=== PATIENT | female | born 1995 | race Hispanic/Latino ===

== ENCOUNTER 2018-02-11 16:50 | Emergency (ER) | payer OTHER ==
[2018-02-11 18:04] LABS: Absolute Lymphocytes (CBC) 2.1 K/uL (0.7-4.9); Absolute Monocytes 0.5 K/uL (0.1-1.3); Absolute Neutrophil 5.5 K/uL (1.8-8.0); Basophils % 0.4 % (0-1.3); Eosinophils % 1.5 % (0-4.4); Hematocrit 38.2 % (36.0-45.0); Lymphocytes % 25.5 % (15.3-44.8); MCH 31.6 pg (27.0-35.0); MCV 92.4 fL (80-100); MPV 9.3 fL (7.6-11.3); RBC Red Blood Cell Count 4.13 M/uL (3.86-4.86)
[2018-02-11 18:11] LABS: Bicarbonate 25 mEq/L (21-31); Glucose Level 96 mg/dL (65-120); Potassium 3.4 mEq/L (3.6-5.0); Sodium Level 137 mEq/L (135-145)
[2018-02-11 18:12] LABS: BUN Blood Urea Nitrogen 6 mg/dL (6-20); Glomerular Filtration Rate > 90 mL/min (=/>90)
[2018-02-11 18:48] LABS: Urine Blood NEGATIVE (NEG); Urine Glucose NEGATIVE (NEG); Urine Protein TRACE (NEG)
[2018-02-11 19:22] LABS: Urine Bacteria <20 /HPF (<20); Urine Culture Reflex Order REFLEXED; Urine RBC <5 /HPF (NONE SEEN)
--- NOTE | 2018-02-11 19:51 | ER ---
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 Sees Dr. Foster, reports she is 12 weeks , est due date 08/28, . Transition of care: patient was not received from another setting of care. Onset of symptoms was February 11, 2018. Care prior to arrival: None. 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 - Social history:: Smoking status: Patient/guardian denies using tobacco. Screenin:35 Abuse screen: Denies threats or abuse. Denies injuries from another. Nutritional kr2 screening: No deficits noted. Tuberculosis screening: No symptoms or risk factors identified. Fall Risk None identified. Assessment: 17:35 Obstetrical Assessment: General assessment: awake and alert, skin warm and dry, kr2 respirations even and unlabored. General: Appears in no apparent distress. comfortable, obese, well groomed, Behavior is cooperative, appropriate for age, anxious. Pain: Denies pain. Neuro: Level of Consciousness is awake, alert, obeys commands, Oriented to person, place, time, situation, Appropriate for age. Cardiovascular: Capillary refill < 3 seconds in bilateral fingers Patient's skin is warm and dry. Respiratory: Airway is patent Respiratory effort is even, unlabored, Respiratory pattern is regular, symmetrical. GI: Abdomen is non-distended, obese, Bowel sounds present X 4 quads. : Reports vaginal bleeding that is light flow, spotty. 17:38 Reassessment: unsuccessful obtaining FHTs. LEIGH Gage notified. Pt reports that ss she has never had a Doppler used in the doctor's office to obtain FHTs, only transvaginal ultrasound. 20:00 Reassessment: Patient appears in no apparent distress at this time. Patient and/or kr2 family updated on plan of care and expected duration. Pain level reassessed. Patient is alert, oriented x 3, equal unlabored respirations, skin warm/dry/pink. States she has had no further bleeding Patient denies pain at this time. Vital Signs: 17:05 BP 168 / 98; Pulse 107; Resp 20; Temp 98; Pulse Ox 100% on R/A; Height 5 ft. 6 in. hb (167.64 cm); Pain 0/10; 18:56 BP 140 / 78; Pulse 90; Resp 18; Pulse Ox 100% on R/A; kr2 20:04 BP 145 / 80; Pulse 90; Resp 16; Pulse Ox 99% on R/A; kr2 Vitals: 18:58 Heart Tones heart tones could not be heard with external Doppler. Provider kr2 was notified, vaginal ultrasound ordered. ED Course: 16:51 Patient arrived in ED. as 16:51 Jacinta Foster MD is Private Physician. as 17:04 Triage completed. hb 17:05 Arm band placed on left wrist. hb 17:07 [facility]ly [facility] jr8 17:07 Jose Elias Vasquez MD is Attending Physician. jr8 17:25 Shannan Jara, NEHEMIAS is Primary Nurse. kr2 17:40 Patient has correct armband on for positive identification. Bed in low position. Call kr2 light in reach. Side rails up X2. Pulse ox on. NIBP on. Door closed. Warm blanket given. Head of bed elevated. 17:42 Initial lab(s) drawn, by me, sent to lab. Inserted saline lock: 22 gauge in right dh3 forearm, using aseptic technique. Blood collected. 17:55 Radiology exam delayed due to test not completed at this time. sg3 19:33 Ultrasound completed. Patient tolerated well. 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 sg3 19:50 Jacinta Foster MD is Referral Physician. jr8 20:05 No provider procedures requiring assistance completed. IV discontinued, intact, kr2 bleeding controlled, No redness/swelling at site. Pressure dressing applied. Administered Medications: No medications were administered Outcome: 19:50 Discharge ordered by . jr8 20:06 Discharged to home ambulatory, with family. kr2 20:06 Condition: good 20:06 Discharge instructions given to patient, family, Instructed on discharge instructions, follow up and referral plans. Demonstrated understanding of instructions, follow-up care. 20:08 Patient left the ED. kr2 Signatures: Carolina Dow Shelby RN RN ss Alonso Ely PA PA jr8 Renetta Lloyd RN RN Dea Santiago 3 Shannan Jara RN RN kr2 Sue España 3 Corrections: (The following items were deleted from the chart) 20:07 17:35 : Reports vaginal bleeding that is kr2 kr2
--- NOTE | 2018-02-11 19:51 | EDPHYS ---
Physician Documentation [facility] Name: Lyudmila Christian Age: 22 yrs Sex: Female : 1995 Arrival Date: 02/11/2018 Time: 16:51 Bed 23 Private MD: Jacinta Foster ED Physician Jose Elias Vasquez HPI: 02/11 17:47 This 22 yrs old Female presents to ER via Ambulatory with complaints of jr8 Vaginal Bleeding, + Preg <12wks. 17:47 The patient presents to the emergency department with vaginal bleeding, that is light, jr8 described as spotting. The estimated gestational age is 12 weeks. course: care: private OB physician, Dr. Foster, Leakage of Fluid: none appreciated, Ultrasound: the patient had an ultrasound, which was normal, Risk/complications: no obvious risks or complications are appreciated. Previous pregnancies: the patient has never been . Associated signs and symptoms: The patient has no apparent associated signs or symptoms. The patient has not experienced similar symptoms in the past. The patient has not recently seen a physician. stated that she had gone to restroom and after whipping saw small amount of blood. Denies abdominal cramping or back pain . 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 - Social history:: Smoking status: Patient/guardian denies using tobacco. ROS: 17:47 Eyes: Negative for injury, pain, redness, and discharge, ENT: Negative for injury, jr8 pain, and discharge, Neck: Negative for injury, pain, and swelling, Cardiovascular: Negative for chest pain, palpitations, and edema, Respiratory: Negative for shortness of breath, cough, wheezing, and pleuritic chest pain, Abdomen/GI: Negative for abdominal pain, nausea, vomiting, diarrhea, and constipation, Back: Negative for injury and pain, MS/Extremity: Negative for injury and deformity, Skin: Negative for injury, rash, and discoloration, Neuro: Negative for headache, weakness, numbness, tingling, and seizure. 17:47 : Positive for vaginal bleeding, Negative for vaginal discharge, vaginal itching. Exam: 17:47 Eyes: Pupils equal round and reactive to light, extra-ocular motions intact. Lids and jr8 lashes normal. Conjunctiva and sclera are non-icteric and not injected. Cornea within normal limits. Periorbital areas with no swelling, redness, or edema. ENT: Nares patent. No nasal discharge, no septal abnormalities noted. Tympanic membranes are normal and external auditory canals are clear. Oropharynx with no redness, swelling, or masses, exudates, or evidence of obstruction, uvula midline. Mucous membranes moist. Neck: Trachea midline, no thyromegaly or masses palpated, and no cervical lymphadenopathy. Supple, full range of motion without nuchal rigidity, or vertebral point tenderness. No Meningismus. Cardiovascular: Regular rate and rhythm with a normal S1 and S2. No gallops, murmurs, or rubs. Normal PMI, no JVD. No pulse deficits. Respiratory: Lungs have equal breath sounds bilaterally, clear to auscultation and percussion. No rales, rhonchi or wheezes noted. No increased work of breathing, no retractions or nasal flaring. Abdomen/GI: Soft, non-tender, with normal bowel sounds. No distension or tympany. No guarding or rebound. No evidence of tenderness throughout. Back: No spinal tenderness. No costovertebral tenderness. Full range of motion. Skin: Warm, dry with normal turgor. Normal color with no rashes, no lesions, and no evidence of cellulitis. MS/ Extremity: Pulses equal, no cyanosis. Neurovascular intact. Full, normal range of motion. Neuro: Awake and alert, GCS 15, oriented to person, place, time, and situation. Cranial nerves II-XII grossly intact. Motor strength 5/5 in all extremities. Sensory grossly intact. Cerebellar exam normal. Normal gait. Vital Signs: 17:05 BP 168 / 98; Pulse 107; Resp 20; Temp 98; Pulse Ox 100% on R/A; Height 5 ft. 6 in. hb (167.64 cm); Pain 0/10; 18:56 BP 140 / 78; Pulse 90; Resp 18; Pulse Ox 100% on R/A; kr2 20:04 BP 145 / 80; Pulse 90; Resp 16; Pulse Ox 99% on R/A; kr2 MDM: 17:07 Patient medically screened. [facility] 19:48 Data reviewed: vital signs, nurses notes, lab test result(s), EKG, radiologic studies, [facility] ultrasound, and as a result, I will discharge patient. Data interpreted: Pulse oximetry: on room air is 98 %. Interpretation: normal. Counseling: I had a detailed discussion with the patient and/or guardian regarding: the historical points, exam findings, and any diagnostic results supporting the discharge/admit diagnosis, lab results, radiology results, the need for outpatient follow up, an OB/Gyne specialist, to return to the emergency department if symptoms worsen or persist or if there are any questions or concerns that arise at home. ED course: Instructed to f/u with OB on Tuesday. Until then pelvic rest. Low activity level. Hydrate. If bleeding gets worse to come back . 02/11 17:21 Order name: Quantitative Hcg [facility] 02/11 17:21 Order name: Abo/rh Typing [facility] 02/11 17:21 Order name: Basic Metabolic Panel [facility] 02/11 17:21 Order name: CBC with Diff [facility] 02/11 18:06 Order name: CBC with Automated Diff; Complete Time: 18:22 EDFL 02/11 18:11 Order name: Basic Metabolic Panel; Complete Time: 19:00 EDFL 02/11 18:15 Order name: ABO/RH typing; Complete Time: 18:22 EDFL 02/11 18:30 Order name: Urine Microscopic Only [facility] 02/11 18:36 Order name: Urine Dipstick--Ancillary (enter results) 02/11 18:36 Order name: Urine --Ancillary (enter results) 02/11 18:45 Order name: HCG, Quantitative; Complete Time: 19:00 EDFL 02/11 18:48 Order name: Urine --Ancillary; Complete Time: 19:00 EDFL 02/11 18:48 Order name: Urine Dipstick-Ancillary; Complete Time: 19:00 EDFL 02/11 19:22 Order name: Urine Microscopic Only; Complete Time: 19:28 EDFL 02/11 17:21 Order name: Urine Test (obtain specimen); Complete Time: 18:30 [facility] 02/11 17:21 Order name: IV Saline Lock; Complete Time: 17:50 [facility] 02/11 17:21 Order name: Labs collected and sent; Complete Time: 17:50 [facility] 02/11 17:21 Order name: NPO; Complete Time: 17:34 [facility] 02/11 17:21 Order name: Urine Dipstick-Ancillary (obtain specimen); Complete Time: 18:31 [facility] 02/11 17:22 Order name: FHT's; Complete Time: 17:55 [facility] 02/11 17:39 Order name: US Transvaginal Ob jr8 Administered Medications: No medications were administered Disposition: 02/11/18 19:50 Discharged to Home. Impression: Threatened . - Condition is Stable. - Discharge Instructions: Threatened Miscarriage, Pelvic Rest. - Medication Reconciliation Form, Thank You Letter, Antibiotic Education, Prescription Opioid Use, Work release form, Family Work Release form. - Follow up: Jacinta Foster MD; When: 1 - 2 days; Reason: Recheck today's complaints, Continuance of care, Re-evaluation by your physician. - Problem is new. - Symptoms have improved. Addendum: 02/13/2018 08:00 Co-signature as Attending Physician, Jose Elias Vasquez MD I agree with the assessment and c gloria plan of care. Signatures: Dispatcher [employer] [facility] Jose Elias Vasquez MD MD cha Roszak, Josh, PA PA jr8 Renetta Lloyd, RN NEHEMIAS Shannan Jara RN RN kr2
--- NOTE | 2018-02-11 20:15 | RAD REPORT ---
EXAM DESCRIPTION: US - Transvaginal OB - 02/11/2018 7:58 pm CLINICAL HISTORY: with abdominal pain and vaginal bleeding COMPARISON: None. FINDINGS: The uterus is retroverted and measures 12 x 8 x 10 centimeters. A gestational sac is pres ent within the endometrium. Within this is a pole with a crown-rump length 4.1 centimeters. Ca rdiac activity 166 beats per minute A a tiny subchorionic bleed is seen. Small amount of fluid is present the cervical canal. . No signif icant free fluid is seen. IMPRESSION: Single live intrauterine with an estimated gestational age 11 weeks 0 days ED D 09/02/2018
== END 2018-02-11 20:08 | disposition home or self-care (01) ==
LOC: ER 16:50
DX: O20.0 Threatened abortion (principal); Z3A.11 11 weeks gestation of pregnancy
CPT/HCPCS: 36415; 76817; 80048; 81003; 81015; 81025; 84702; 85025; 86900; 86901; 87086; 87088; 99284

== ENCOUNTER 2018-06-05 21:40 | Emergency (ER) | payer OTHER ==
[2018-06-05] MEDS ORDERED: ACETAMINOPHEN 500 MG TAB ONE (22:18)
--- NOTE | 2018-06-05 23:02 | EDPHYS ---
Physician Documentation [facility] Name: Lyudmila Christian Age: 23 yrs Sex: Female : 1995 Arrival Date: 06/05/2018 Time: 21:41 Bed 15 Private MD: ED Physician Belkys Josue HPI: 06/05 22:58 This 23 yrs old Female presents to ER via Wheelchair with complaints of Leg ma2 Pain - 28 Wks Preg. 22:58 The patient presents with pain. The complaints affect the left gluteal fold and left ma2 upper thigh. Context: the patient is able to ambulate. Onset: The symptoms/episode began/occurred gradually, 4 week(s) ago. Modifying factors: The symptoms are alleviated by nothing. the symptoms are aggravated by movement. Associated signs and symptoms: Pertinent negatives calf tenderness, fever, nausea, numbness, rash, swelling, tingling, vomiting, warmth, weakness. Severity of symptoms: At their worst the symptoms were moderate, in the emergency department the symptoms have improved. The patient has experienced similar episodes in the past. 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 - Social history:: Smoking status: Patient/guardian denies using tobacco, Patient/guardian denies using alcohol, street drugs, The patient lives with family. - Ebola Screening: : No symptoms or risks identified at this time. - Family history:: not pertinent. ROS: 22:58 Back: Positive for pain with movement, Negative for injury or acute deformity, pain ma2 with movement, radiated pain, acute changes. 22:58 All other systems are negative. Exam: 22:58 Constitutional: This is a well developed, well nourished patient who is awake, alert, ma2 and in no acute distress. Head/Face: Normocephalic, atraumatic. Chest/axilla: Normal chest wall appearance and motion. Nontender with no deformity. No lesions are appreciated. Cardiovascular: Regular rate and rhythm with a normal S1 and S2. No gallops, murmurs, or rubs. Normal PMI, no JVD. No pulse deficits. Respiratory: Lungs have equal breath sounds bilaterally, clear to auscultation and percussion. No rales, rhonchi or wheezes noted. No increased work of breathing, no retractions or nasal flaring. Abdomen/GI: Soft, non-tender, with normal bowel sounds. No distension or tympany. No guarding or rebound. No evidence of tenderness throughout. Back: No spinal tenderness. No costovertebral tenderness. Full range of motion. MS/ Extremity: Pulses equal, no cyanosis. Neurovascular intact. Full, normal range of motion. Neuro: Awake and alert, GCS 15, oriented to person, place, time, and situation. Cranial nerves II-XII grossly intact. Motor strength 5/5 in all extremities. Sensory grossly intact. Cerebellar exam normal. Normal gait. Psych: Awake, alert, with orientation to person, place and time. Behavior, mood, and affect are within normal limits. 22:58 Neuro: Motor: is normal. 22:58 Neuro: has positive leg rais test . Vital Signs: 21:52 BP 143 / 75; Pulse 119; Resp 20; Temp 98.6; Pulse Ox 98% on R/A; Weight 172.37 kg (R); ak1 Height 5 ft. 6 in. (167.64 cm) (R); Pain 5/10; 22:37 BP 127 / 82; Pulse 86; Resp 18; Pulse Ox 100% on R/A; aa1 23:20 BP 104 / 55; Pulse 82; Resp 18; Pulse Ox 99% on R/A; Pain 3/10; aa1 21:52 Body Mass Index 61.33 (172.37 kg, 167.64 cm) ak1 MDM: 21:45 Patient medically screened. ma2 22:58 Differential diagnosis: muscle sprain, disc prolapse, vs sciatica, unlikely fracture. ma2 Administered Medications: 22:17 Drug: Tylenol 500 mg Route: PO; aa1 23:20 Follow up: Response: No adverse reaction; Pain is decreased aa1 Disposition: 06/05/18 23:02 Discharged to Home. Impression: Low back pain. - Condition is Stable. - Discharge Instructions: Back Pain, Adult. - Prescriptions for Tylenol 325 mg Oral tablet - take 1 tablet by ORAL route every 4-6 hours as needed; 30 tablet. Cyclobenzaprine 5 mg Oral Tablet - take 1 tablet by ORAL route 3 times per day As needed; 15 tablet. - Medication Reconciliation Form, Thank You Letter, Antibiotic Education, Prescription Opioid Use form. - Follow up: Private Physician; When: Tomorrow; Reason: Continuance of care. - Problem is an acute exacerbation. - Symptoms have improved. Signatures: Pari Ortiz RN RN aa1 Chana Weller RN RN ak1 Belkys Josue MD MD ma2 Corrections: (The following items were deleted from the chart) 23:24 23:02 06/05/2018 23:02 Discharged to Home. Impression: Low back pain. Condition is aa1 Stable. Forms are Medication Reconciliation Form, Thank You Letter, Antibiotic Education, Prescription Opioid Use. Follow up: Private Physician; When: Tomorrow; Reason: Continuance of care. Problem is an acute exacerbation. Symptoms have improved. ma2
--- NOTE | 2018-06-05 23:02 | ER ---
Nurse's Notes [facility] Name: Lyudmila Christian Age: 23 yrs Sex: Female : 1995 Arrival Date: 06/05/2018 Time: 21:41 Bed 15 Private MD: Diagnosis: Low back pain Presentation: 06/05 21:48 Presenting complaint: Patient states: left leg pain due to "baby laying on my spine" pt ak1 stated the pain has been intermittent through out the but became more "intense tonight". Transition of care: patient was not received from another setting of care. Onset of symptoms is unknown. Risk Assessment: Do you want to hurt yourself or someone else? Patient reports no desire to harm self or others. Care prior to arrival: None. pt was sent to [facility] by registration, [facility] did not check or assess pt but sent her back to ER for evaluation. 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 21:48 Method Of Arrival: Wheelchair ak1 21:48 Acuity: KIP 3 ak1 23:30 Initial Sepsis Screen: Does the patient meet any 2 criteria? No. Patient's initial aa1 sepsis screen is negative. Does the patient have a suspected source of infection? No. Patient's initial sepsis screen is negative. Triage Assessment: 21:52 General: Appears uncomfortable, obese, Behavior is crying. 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 - Social history:: Smoking status: Patient/guardian denies using tobacco, Patient/guardian denies using alcohol, street drugs, The patient lives with family. - Ebola Screening: : No symptoms or risks identified at this time. - Family history:: not pertinent. Screenin:00 Abuse screen: Denies threats or abuse. Denies injuries from another. Nutritional aa1 screening: No deficits noted. Tuberculosis screening: No symptoms or risk factors identified. Fall Risk None identified. Assessment: 22:00 General: Appears in no apparent distress. comfortable, obese, Behavior is calm, aa1 cooperative, appropriate for age. Pain: Complains of pain in left leg and left upper thigh Aggravated by weight bearing. Neuro: Level of Consciousness is awake, alert, obeys commands, Oriented to person, place, time, situation, Moves all extremities. Full function Gait is steady. Respiratory: Airway is patent Respiratory effort is even, unlabored, Respiratory pattern is regular, symmetrical. GI: No signs and/or symptoms were reported involving the gastrointestinal system. : No signs and/or symptoms were reported regarding the genitourinary system. EENT: No signs and/or symptoms were reported regarding the EENT system. Derm: Skin is intact, is healthy with good turgor, Skin is pink, warm \\T\\ dry. Musculoskeletal: Circulation, motion, and sensation intact. Capillary refill < 3 seconds, Range of motion: intact in all extremities. 22:38 Reassessment: Patient appears in no apparent distress at this time. Patient and/or aa1 family updated on plan of care and expected duration. Pain level reassessed. Patient is alert, oriented x 3, equal unlabored respirations, skin warm/dry/pink. Awaiting provider reassessment. 23:23 Reassessment: Patient appears in no apparent distress at this time. Patient is alert, aa1 oriented x 3, equal unlabored respirations, skin warm/dry/pink. Discussed d/c \\T\\ f/u instructions with pt \\T\\ spouse; denies questions or concerns at this time Patient states symptoms have improved. Vital Signs: 21:52 BP 143 / 75; Pulse 119; Resp 20; Temp 98.6; Pulse Ox 98% on R/A; Weight 172.37 kg (R); ak1 Height 5 ft. 6 in. (167.64 cm) (R); Pain 5/10; 22:37 BP 127 / 82; Pulse 86; Resp 18; Pulse Ox 100% on R/A; aa1 23:20 BP 104 / 55; Pulse 82; Resp 18; Pulse Ox 99% on R/A; Pain 3/10; aa1 21:52 Body Mass Index 61.33 (172.37 kg, 167.64 cm) ak1 ED Course: 21:41 Patient arrived in ED. ds1 21:45 Belkys Josue MD is Attending Physician. ma2 21:50 Triage completed. ak1 21:52 Arm band placed on Patient placed in an exam room, on a stretcher, on pulse oximetry, ak1 Patient notified of wait time. 22:00 Patient has correct armband on for positive identification. Bed in low position. Call aa1 light in reach. Pulse ox on. NIBP on. 22:12 Pari Ortiz, RN is Primary Nurse. aa1 23:24 No provider procedures requiring assistance completed. Patient did not have IV access aa1 during this emergency room visit. Administered Medications: 22:17 Drug: Tylenol 500 mg Route: PO; aa1 23:20 Follow up: Response: No adverse reaction; Pain is decreased aa1 Outcome: 23:02 Discharge ordered by . ma2 23:24 Discharged to home ambulatory, with significant other. aa1 23:24 Condition: good 23:24 Discharge instructions given to patient, significant other, Instructed on discharge instructions, follow up and referral plans. medication usage, Demonstrated understanding of instructions, follow-up care, medications, Prescriptions given X 2. 23:24 Patient left the ED. aa1 Signatures: Pari Ortiz, RN RN go1 Rosie Chaudhry ds1 Chana Weller RN RN ak1 Belkys Josue MD MD ma2
== END 2018-06-05 23:24 | disposition home or self-care (01) ==
LOC: ER 21:40
DX: M54.5 Low back pain (principal)
CPT/HCPCS: 99283

== ENCOUNTER 2019-03-11 01:24 | Emergency (ER) | payer OTHER ==
--- OUTSIDE RECORDS SUMMARY | 2019-03-11 01:26 | XMS REPORT ---
:1995 [facility] Address [address] [place] [address] Dr. Castro [address] [place] [id number] Care Team Providers Name Role Phone Unavailable Unavailable Unavailable Problems This patient has no known problems. Allergies, Adverse Reactions, Alerts This patient has no known allergies or adverse reactions. Medications This patient has no known medications.
--- NOTE | 2019-03-11 01:50 | EDPHYS ---
Physician Documentation [facility] Name: Lyudmila Christian Age: 24 yrs Sex: Female : 1995 Arrival Date: 03/11/2019 Time: 01:25 Bed 14 Private MD: ED Physician Fernando Mascorro HPI: 03/11 01:48 This 24 yrs old Female presents to ER via Ambulatory with complaints of Right pm1 Great Toe Pain. 01:48 Onset: The symptoms/episode began/occurred 5 day(s) ago. Associated signs and symptoms: pm1 Pertinent positives: discharge, Pertinent negatives: fever. Modifying factors: The patient symptoms are alleviated by expressing discharge, the patient symptoms are aggravated by nothing. The patient has not experienced similar symptoms in the past. The patient has not recently seen a physician. Patient was walking up stairs 5 days ago and her right great toe nail got caught on the stairs and lifted of the base a little. She noticed the onset of pain and some discharge 3 days ago. There is currently no discharge at the moment or swelling to right great toe. 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 - Social history:: Smoking status: Patient/guardian denies using tobacco, Patient/guardian denies using alcohol, street drugs. - Ebola Screening: : No symptoms or risks identified at this time. ROS: 01:46 Constitutional: Negative for fever, chills, and weight loss, Eyes: Negative for injury, pm1 pain, redness, and discharge, ENT: Negative for injury, pain, and discharge, Neck: Negative for injury, pain, and swelling, Cardiovascular: Negative for chest pain, palpitations, and edema, Respiratory: Negative for shortness of breath, cough, wheezing, and pleuritic chest pain, Abdomen/GI: Negative for abdominal pain, nausea, vomiting, diarrhea, and constipation, Back: Negative for injury and pain, : Negative for injury, bleeding, discharge, and swelling, MS/Extremity: Negative for injury and deformity. 01:46 Neuro: Negative for headache, weakness, numbness, tingling, and seizure. 01:46 Skin: Positive for swelling, drainage of pus from right great toe nail area, Negative for cellulitis, discoloration. Exam: :46 Constitutional: This is a well developed, well nourished patient who is awake, alert, pm1 and in no acute distress. Head/Face: Normocephalic, atraumatic. Eyes: Pupils equal round and reactive to light, extra-ocular motions intact. Lids and lashes normal. Conjunctiva and sclera are non-icteric and not injected. Cornea within normal limits. Periorbital areas with no swelling, redness, or edema. ENT: Nares patent. No nasal discharge, no septal abnormalities noted. Tympanic membranes are normal and external auditory canals are clear. Oropharynx with no redness, swelling, or masses, exudates, or evidence of obstruction, uvula midline. Mucous membranes moist. Neck: Trachea midline, no thyromegaly or masses palpated, and no cervical lymphadenopathy. Supple, full range of motion without nuchal rigidity, or vertebral point tenderness. No Meningismus. Chest/axilla: Normal chest wall appearance and motion. Nontender with no deformity. No lesions are appreciated. Cardiovascular: Regular rate and rhythm with a normal S1 and S2. No gallops, murmurs, or rubs. Normal PMI, no JVD. No pulse deficits. Respiratory: Lungs have equal breath sounds bilaterally, clear to auscultation and percussion. No rales, rhonchi or wheezes noted. No increased work of breathing, no retractions or nasal flaring. Abdomen/GI: Soft, non-tender, with normal bowel sounds. No distension or tympany. No guarding or rebound. No evidence of tenderness throughout. Back: No spinal tenderness. No costovertebral tenderness. Full range of motion. Skin: Warm, dry with normal turgor. Normal color with no rashes, no lesions, and no evidence of cellulitis. MS/ Extremity: Pulses equal, no cyanosis. Neurovascular intact. Full, normal range of motion. :46 Neuro: Orientation: is normal, Motor: is normal, moves all fours, Gait: is steady, at a normal pace, without difficulty. Vital Signs: 01:41 BP 143 / 81; Pulse 77; Resp 16 S; Temp 98.1(O); Pulse Ox 98% on R/A; Weight 172.37 kg bb (R); Height 5 ft. 6 in. (167.64 cm) (R); Pain 8/10; 01:41 Body Mass Index 61.33 (172.37 kg, 167.64 cm) bb MDM: 01:39 Patient medically screened. pm1 01:48 Data reviewed: vital signs. Data interpreted: Pulse oximetry: on room air is 98 %. pm1 Interpretation: normal. Counseling: I had a detailed discussion with the patient and/or guardian regarding: the historical points, exam findings, and any diagnostic results supporting the discharge/admit diagnosis, the need for outpatient follow up, to return to the emergency department if symptoms worsen or persist or if there are any questions or concerns that arise at home. 01:48 ED course: Based on patient description of the infection and drainage it sounds like an pm1 improving paronychia. There is no area to perform and I\T\D therefore I will give the patient antibiotics. Administered Medications: No medications were administered Disposition: 03/11/19 01:49 Discharged to Home. Impression: Local infection of the skin and subcutaneous tissue, unspecified. - Condition is Stable. - Discharge Instructions: Paronychia. - Prescriptions for Doxycycline Hyclate 100 mg Oral Tablet - take 1 tablet by ORAL route every 12 hours; 20 tablet. Tramadol 50 mg Oral Tablet - take 1 tablet by ORAL route every 8 hours as needed; 12 tablet. - Medication Reconciliation Form, Thank You Letter, Antibiotic Education, Prescription Opioid Use form. - Follow up: Emergency Department; When: As needed; Reason: Worsening of condition. Follow up: Private Physician; When: 2 - 3 days; Reason: Recheck today's complaints, Continuance of care, Re-evaluation by your physician. - Problem is new. - Symptoms have improved. Addendum: 03/13/2019 01:25 Co-signature as Attending Physician, Fernando Mascorro MD. g s Signatures: Julianna Gonzalez, RN RN bb Saul Garay, OS[place] SANIPRACTIC PHYSICIAN pm1 Cruz Obrien RN RN jb4 Fernando Mascorro MD MD Corrections: (The following items were deleted from the chart) 03/11 02:24 01:49 03/11/2019 01:49 Discharged to Home. Impression: Local infection of the skin and jb4 subcutaneous tissue, unspecified. Condition is Stable. Forms are Medication Reconciliation Form, Thank You Letter, Antibiotic Education, Prescription Opioid Use. Follow up: Emergency Department; When: As needed; Reason: Worsening of condition. Follow up: Private Physician; When: 2 - 3 days; Reason: Recheck today's complaints, Continuance of care, Re-evaluation by your physician. Problem is new. Symptoms have improved. pm1
--- NOTE | 2019-03-11 01:50 | ER ---
Nurse's Notes [facility] Name: Lyudmila Christian Age: 24 yrs Sex: Female : 1995 Arrival Date: 03/11/2019 Time: 01:25 Bed 14 Private MD: Diagnosis: Local infection of the skin and subcutaneous tissue, unspecified Presentation: 03/11 01:39 Presenting complaint: Patient states: about a week ago she hit her right big toe and bb lifted the nail up a little then about 3 days ago pus started coming out and now it is painful. Transition of care: patient was not received from another setting of care. Onset of symptoms was March 11, 2019. Risk Assessment: Do you want to hurt yourself or someone else? Patient reports no desire to harm self or others. Initial Sepsis Screen: Does the patient meet any 2 criteria? No. Patient's initial sepsis screen is negative. Does the patient have a suspected source of infection? No. Patient's initial sepsis screen is negative. Care prior to arrival: None. 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 - Social history:: Smoking status: Patient/guardian denies using tobacco, Patient/guardian denies using alcohol, street drugs. - Ebola Screening: : No symptoms or risks identified at this time. Screenin:20 Abuse screen: Denies threats or abuse. Nutritional screening: No deficits noted. jb4 Tuberculosis screening: No symptoms or risk factors identified. Fall Risk None identified. Assessment: 02:20 General: Appears in no apparent distress. comfortable, Behavior is calm, cooperative, jb4 appropriate for age. Pain: Complains of pain in Right first toenail Pain does not radiate. Pain currently is 5 out of 10 on a pain scale. Quality of pain is described as stabbing, throbbing, Is intermittent. Neuro: Level of Consciousness is awake, alert, obeys commands, Oriented to person, place, time, situation. Cardiovascular: Patient's skin is warm and dry. Respiratory: Airway is patent Respiratory effort is even, unlabored, Respiratory pattern is regular, symmetrical. GI: No signs and/or symptoms were reported involving the gastrointestinal system. : No signs and/or symptoms were reported regarding the genitourinary system. EENT: No signs and/or symptoms were reported regarding the EENT system. Derm: Skin is intact, Skin is pink, warm \T\ dry. Musculoskeletal: Circulation, motion, and sensation intact. Vital Signs: 01:41 BP 143 / 81; Pulse 77; Resp 16 S; Temp 98.1(O); Pulse Ox 98% on R/A; Weight 172.37 kg bb (R); Height 5 ft. 6 in. (167.64 cm) (R); Pain 8/10; 01:41 Body Mass Index 61.33 (172.37 kg, 167.64 cm) bb ED Course: 01:25 Patient arrived in ED. ds1 01:33 Saul Garay NP is PHCP. pm1 01:33 Fernando Mascorro MD is Attending Physician. pm1 01:40 Triage completed. bb 01:41 Arm band placed on Patient placed in an exam room, on a stretcher. Family accompanied bb patient. 02:20 Cruz Obrien, NEHEMIAS is Primary Nurse. jb4 02:20 Patient has correct armband on for positive identification. Bed in low position. Call jb4 light in reach. Side rails up X 1. 02:20 No provider procedures requiring assistance completed. Patient did not have IV access jb4 during this emergency room visit. Administered Medications: No medications were administered Outcome: 01:49 Discharge ordered by . pm1 02:20 Discharged to home ambulatory, with significant other. jb4 02:20 Condition: stable 02:20 Discharge instructions given to patient, significant other, Instructed on discharge instructions, follow up and referral plans. medication usage, Demonstrated understanding of instructions, follow-up care, medications, Prescriptions given X 2. 02:24 Patient left the ED. jb4 Signatures: Rosie Chaudhry ds1 Julianna Gonzalez RN RN bb Saul Garay, [place] PARKING GARAGE MANAGER pm1 Cruz Obrien RN RN jb4
== END 2019-03-11 02:24 | disposition home or self-care (01) ==
LOC: ER 01:24
DX: L08.9 Local infection of the skin and subcutaneous tissue, unspecified (principal)
CPT/HCPCS: 99282

== ENCOUNTER 2020-04-09 18:50 | Emergency (ER) | payer OTHER ==
--- OUTSIDE RECORDS SUMMARY | 2020-04-09 18:52 | XMS REPORT ---
:1995 Author Organization [facility] t Address [address] [place] [address] Care Team Providers Name Role Phone Daily Sullivan Attending Clinician Doctor Unassigned, Name Attending Clinician Unavailable Problems This patient has no known problems. Allergies, Adverse Reactions, Alerts This patient has no known allergies or adverse reactions. Medications This patient has no known medications. Procedures This patient has no known procedures. 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
--- OUTSIDE RECORDS SUMMARY | 2020-04-09 18:53 | XMS REPORT | Summary of Care ---
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 pain ELISABET Forrest (Primary Dx) [address] [facility] [address] [facility] [address] [address] [place], [place] [id number] Allergies No Known Allergiesdocumented as of this encounter (statuses as of 08/07/2019) Medications Medication Sig Dispensed Refills Start Date End Date Status ferrous sulfate 325 mg Take 1 tablet by 60 tablet 2 08/10/2018 Active (65 mg iron) tablet mouth 2 (two) times daily. ibuprofen 600 mg Take 1 tablet by 60 tablet 1 08/10/2018 Active tablet mouth every 6 (six) hours as needed for Pain (scale 1-3) or Pain (scale 4-6) (Pain). Take with food or milk. documented as of this encounter (statuses as of 08/07/2019) Active Problems Problem Noted Date IUD check up 11/01/2018 Well woman exam 09/20/2018 Contraceptive management 09/20/2018 Encounter for IUD insertion 09/20/2018 Cervical Papanicolaou smear negative within last 12 mo [facility] 09/20/2018 Overview: 01/2018, see scanned records Morbid obesity 02/16/2018 documented as of this encounter (statuses as of 08/07/2019) Resolved Problems Problem Noted Date Resolved Date History of section 08/30/2018 09/20/2018 History of gestational hypertension 08/30/201808/23 delivery delivered 08/10/2018 08/30/2018 Anemia of mother in , antepartum 07/28/2018 08/30/2018 Gestational hypertension, third trimester 07/13/2018 08/30/2018 Gestational hypertension affecting first 8 07/25/2018 Chronic hypertension complicating or reason for care during 05/25/2018 06/01/2018 , second trimester Primigravida, antepartum 03/31/2018 08/30/2018 Supervision of high risk , antepartum 02/16/2018 08/30/2018 Subchorionic hemorrhage of placenta in first trimester, 01/2006/01/2018 fetus 1 of multiple gestation Overview: Resolved documented as of this encounter (statuses as of 08/07/2019) Immunizations Name Administration Dates Next Due HPV9 03/05/2019, 09/13/2018, 08/09/2018 Tdap 06/22/2018 documented as of this encounter Social History Tobacco Use Types Packs/Day Years Used Date Never Smoker Smokeless Tobacco: Never Used Alcohol Use Drinks/Week oz/Week Comments No Sex Assigned at Date Recorded Not on file Job Start Date Occupation Industry Not on file Not on file Not on file Travel History Travel Start Travel End No recent travel history available. 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 She reports it started about 1 week ago. She reports that she did have some sciatic nerve pain during , and she reports she did get an epidural during delivery. She reports the last time she felt the pain was last night when she was given her son a shower. She reports that the pain was intense. She declines any back pain today, and declines all other associated symptoms today. Histories OB History Para Term AB Living 1 1 1 1 SAB TAB Ectopic Multiple Live Births 0 1 # Outcome Date GA Lbr Logan/2nd Weight Sex Delivery Anes PTL Lv 1 Term 08/08/18 37w1d 7 lb 0.5 oz (3.19 kg) M CS-LTranv EPI JED Obstetric Comments GHTN LTCS with extension Past Medical History: Diagnosis Date Anemia of mother in , antepartum 07/28/2018 delivery delivered 08/10/2018 Chronic hypertension complicating or reason for care during , second trimester Gestational hypertension, third trimester 07/13/2018 Primigravida, antepartum 03/31/2018 Supervision of high risk , antepartum 02/16/2018 Family History Problem Relation Age of Onset No Significant Medical Problems Mother No Significant Medical Problems Father No Significant Medical Problems Sister No Significant Medical Problems Brother No Significant Medical Problems Maternal Aunt No Significant Medical Problems Maternal Uncle No Significant Medical Problems Paternal Aunt No Significant Medical Problems Paternal Uncle No Significant Medical Problems Maternal Grandmother Cancer Maternal Grandfather Lung Diabetes Paternal Grandmother Family Status Relation Name Status Mo Alive Fa Alive Sis Alive Bro Alive MAunt Alive MUnc Alive PAunt Alive PUnc Alive MGMo Alive MGFa PGMo Alive PGFa Alive Past Surgical History: Procedure Laterality Date SECTION N/A 08/08/2018 Surgeon: Jessica Smiley MD; Location: Labor and Delivery - [place] Social History Socioeconomic History Marital status: Single Spouse name: Not on file Number of children: Not on file Years of education: 12th Highest education level: Not on file Occupational History Not on file Social Needs Financial resource strain: Not on file Food insecurity: Worry: Not on file Inability: Not on file Transportation needs: Medical: Not on file Non-medical: Not on file Tobacco Use Smoking status: Never Smoker Smokeless tobacco: Never Used Substance and Sexual Activity Alcohol use: No Drug use: No Sexual activity: Yes control/protection: None Comment: last intercourse 07/11/2018 Lifestyle Physical activity: Days per week: Not on file Minutes per session: Not on file Stress: Not on file Relationships Social connections: Talks on phone: Not on file Gets together: Not on file Attends church service: Not on file Active member of club or organization: Not on file Attends meetings of clubs or organizations: Not on file Relationship status: Not on file Intimate partner violence: Fear of current or ex partner: Not on file Emotionally abused: Not on file Physically abused: Not on file Forced sexual activity: Not on file Other Topics Concern Not on file Social History Narrative Pt denies current or past physical, sexual or emotional abuse. Social History Substance and Sexual Activity Sexual Activity Yes control/protection: None Comment: last intercourse 07/11/2018 Labs Labs are pending. Radiology No new radiology. Allergies Lyudmila has No Known Allergies. Medications Lyudmila has a current medication list which includes the following prescription(s): ferrous sulfate and ibuprofen. Review of Systems Constitutional: Negative. HENT: Negative. Eyes: Negative. Respiratory: Negative. Breasts: Negative. Cardiovascular: Negative. Gastrointestinal: Negative. Genitourinary: Negative. Musculoskeletal: Positive for back pain. Skin: Negative. Neurological: Negative. Psychiatric/Behavioral: Negative. Endocrine: Endocrine negative BP (!) 140/96 (BP Location: Right arm, Patient Position: Sitting, BP CUFF SIZE: Adult Medium) | Pulse 80 | Temp 36.6 C (97.8 F) (Oral) | Resp 16 | Ht 5' 6" (1.676 m) | Wt 411 lb 8 oz (186.7 kg) | LMP 07/09/2019 (Approximate) | BMI 66.42 kg/m Pregravid BMI: Could not be calculated Physical Exam Vitals reviewed. Constitutional: She is oriented to person, place, and time. She appears well- developed and well-nourished. Cardiovascular: Regular rate and rhythm. No peripheral edema present. Pulmonary/Chest: Normal inspiratory effort. Abdominal: Abdomen is soft. No mass palpated. No tenderness present. There is no hepatosplenomegaly,splenomegaly or hepatomegaly. There is no rigidity and no guarding. No hernia palpated or inspected. Neuro/Psychiatric: She has a normal mood and affect. She is oriented to person, place, and time. Bladder: Bladder has no fullness, no mass palpated and no tenderness. CVAT- negative Assessment/Plan Return to clinic in 4 weeks. Other acute back pain (primary encounter diagnosis) Comment: report symptoms Plan: URINE CULTURE Patient advised on comfort measures, to seek PCP, patient verbalized understanding This visit did not involve counseling and coordination that comprised more than 50% of the visit time. ELISABET Hu 08/07/2019 2:23 PM documented in this encounter Plan of Treatment Date Type Specialty Care Team Description 09/17/2019 Office Visit [facility] Tim Douglas WHCNP [address] [place], [place] [address] [phone] Name Type Priority Associated Diagnoses Order S chedule URINE CULTURE LAB Routine Other acute back pain Order ed: 08/07/2019 Health Maintenance Due Date Last Done Comments MENINGOCOCCAL B VACCINES (1 of 02/14/2006 2 - Risk Bexsero 2-dose series) PAP SMEAR 02/14/2017 INFLUENZA VACCINE (#1) 2019 CHLAMYDIA SCREENING 07/27/2019 07/27/2018, 02/16/2018 DTaP,Tdap,and Td Vaccines (2 - 06/22/2028 06/22/2018 Td) HPV VACCINES Completed 03/05/2019, 09/13/2018, 08/09/2018 PNEUMOCOCCAL 0-64 YEARS Aged Out No longe r eligible based COMBINED SERIES on patient's age to complete this to [facility] documented as of this encounter Results Not on filedocumented in this encounter Visit Diagnoses Diagnosis Other acute back pain - Primary documented in this encounter Insurance Payer Benefit Plan / Subscriber ID Effective Phone Address T ype Group Dates [employer]xxxxxxxx 2019-[address] [place] [address] [place] [address] (Home) [place] [address] documented as of this encounter Advance Directives Name Relationship Healthcare Agent Relationship Co mmunication Noemi Granado Other Primary healthcare agent
--- OUTSIDE RECORDS SUMMARY | 2020-04-09 18:53 | XMS REPORT | Summary of Care ---
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 Encounter Details Date Type Department Care Team Description [facility] ELISABET Forrest (Primary Dx) [address] [facility] [address] [facility] [address] [address] [place], [place] [id number] Allergies No Known Allergiesdocumented as of this [...] Papanicolaou smear negative within last 12 mo [facility] 09/20/2018 Overview: 01/2018, see scanned records Morbid [...] Chief complaint: Chief Complaint 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 Back/Leg 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 HPI : the [...] Smiley MD; Location: Labor and Delivery - [place] Social History Socioeconomic History Marital status: Single [...] file Gets together: Not on file Attends temple service: Not on file Active member of [...] Visit [facility] Tim Douglas WHCNP [address] [place], [place] [address] [phone] Name Type Priority Associated Diagnoses Order S [...] on patient's age to complete this to [facility] documented as of this encounter Results Not on filedocumented in this encounter Visit Diagnoses Diagnosis Other acute back pain - Primary documented in this encounter Insurance Payer Benefit Plan / Subscriber ID Effective Phone Address T ype Group Dates [employer]xxxxxxxx 2019-[address] [place] [id number] [place] [address] (Home) [place] [address] documented as of this encounter Advance Directives Name Relationship Healthcare Agent Relationship Co mmunication Noemi Granado Other Primary healthcare agent
--- OUTSIDE RECORDS SUMMARY | 2020-04-09 18:54 | XMS REPORT | Summary of Care ---
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 - [place] Social History Socioeconomic History Marital status: Single [...] file Gets together: Not on file Attends shinto service: Not on file Active member of [...] Visit OB Satellites Tim Douglas WHCNP [address] [place], [place] [address] [phone] Name Type Priority Associated Diagnoses Date/Ti me URINE CULTURE LAB Routine Other acute back pain 08/07 2:32 PM CDT Health Maintenance Due Date Last Done Comments [...] on patient's age to complete this to [facility] documented as of this encounter Results Not on filedocumented in this encounter Visit Diagnoses Diagnosis Other acute back pain - Primary documented in this encounter Insurance Payer Benefit Plan / Subscriber ID Effective Phone Address T ype Group Dates [employer] xxxxxxxxx 2019-Mauro [place] [address] [place] [address] (Home) [place] [address] documented as of this encounter Advance Directives Name Relationship Healthcare Agent Relationship Co mmunication Noemi Granado Other Primary healthcare agent
--- OUTSIDE RECORDS SUMMARY | 2020-04-09 18:54 | XMS REPORT | Summary of Care ---
:1995 Author Organization [facility] Address [address] [place] [address] Care Team Providers Name Role Phone Dayana Ni [facility] Insurance [facility]mo Rei Douglas [facility] Primary Care Provider Reason for Visit Reason Comments Follow-up iud check Encounter Details Date Type Department Care Team Description [facility] n[facility] for surveillance of other contraceptive (Primary Dx); BERNIE MaravillaP Presence of intrauterine contraceptive d evice [address] [place] [address] [place] [address] [place], [place] [address] Allergies No Known Allergiesdocumented as of this encounter (statuses as of 12/25/2019) Medications Medication Sig Dispensed Refills Start Date [...] as of this encounter (statuses as of 12/25/2019) Active Problems Problem Noted Date Encounter for surveillance of other contraceptive 02/2020 Presence of intrauterine contraceptive device 12/25/19 20 IUD check up 11/01/2018 Well woman exam 09/20/2018 Contraceptive management 09/20/2018 Encounter for IUD insertion 09/20/2018 Cervical Papanicolaou smear negative within last 12 mo nt 09/20/2018 Overview: 01/2018, see scanned records Morbid obesity 02/16/2018 documented as of this encounter (statuses as of 12/25/2019) Resolved Problems Problem Noted Date Resolved Date [...] as of this encounter (statuses as of 12/25/2019) Immunizations Name Administration Dates Next Due HPV9 [...] Sign Reading Time Taken Comments Blood Pressure 126/68 12/25/2019 11:24 AM PLANT MANAGER Pulse 72 12/25/2019 11:24 AM PLANT MANAGER Temperature 36.5 C (97.7 F) 12/25/2019 11:24 AM PLANT MANAGER Respiratory Rate 16 12/25/2019 11:24 AM PLANT MANAGER Oxygen Saturation - - Inhaled Oxygen Concentration - - Weight 190.5 kg (420 lb) 12/25/2019 11:24 AM PLANT MANAGER Height 167.6 cm (5' 6") 12/25/2019 11:24 AM PLANT MANAGER Body Mass Index 67.79 12/25/2019 11:24 AM PLANT MANAGER documented in this encounter Progress Notes Oli Dueñas, HIDE MILL MAN - 12/25/2019 10:45 AM CST Chief complaint: Chief Complaint Patient presents with Follow-up iud check HPI Patient here for IUD check. Patient is concerned IUD is not in place. Patient desires to continue if IUD is in place. 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 Allergies Lyudmila has No Known Allergies. Medications Lyudmila has a current medication list which includes the following prescription(s): ferrous sulfate and ibuprofen. Review of Systems Eyes: Negative for visual disturbance. Cardiovascular: Negative for leg swelling. Gastrointestinal: Negative for abdominal pain, nausea and vomiting. Genitourinary: Negative for vaginal bleeding, vaginal discharge and pelvic pain. Neurological: Negative for headaches. BP 126/68 (BP Location: Right arm, Patient Position: Sitting, BP CUFF SIZE: Adult Large) | Pulse 72 | Temp 36.5 C (97.7 F) (Oral) | Resp 16 | Ht 5' 6" (1.676 m) | Wt 420 lb (190.5 kg) | BMI 67.79 kg/m Pregravid BMI: Could not be calculated Physical Exam Vitals reviewed. Constitutional: She is oriented to person, place, and time. She appears well- developed and well-nourished. Her body habitus is normal. Cardiovascular: Regular rate and rhythm. No peripheral edema present. Pulmonary/Chest: Normal inspiratory effort. Neuro/Psychiatric: Inappropriate mood and affect. She is oriented to person, place, and time. Skin: Skin normal. No lesion, no rash and no ulceration present. External genitalia: Normal external genitalia appropriate for age. Vagina:Normal vagina. No lesion inspected. Normal support. No abnormal vaginal discharge found. Cervix: Normal cervix. No lesion. No tenderness and no discharge present. IUD in place, strings noted. Assessment/Plan Encounter for surveillance of other contraceptive (primary encounter diagnosis) Presence of intrauterine contraceptive device Comment: IUD in place Plan: patient desires to continue. Return to clinic for WWE or PRN. Discussed treatment options. Medications as ordered. Reviewed patient instructions and provided printed copy. This visit did not involve counseling and coordination that comprised more than 50% of the visit time. BEV Brown 12/25/2019 1:02 PM T MANAGER documented in this encounter Plan of Treatment Health Maintenance Due Date Last Done Comments MENINGOCOCCAL B VACCINES (1 of 02/14/2006 2 - Risk Bexsero 2-dose series) INFLUENZA VACCINE (#1) 2019 CHLAMYDIA SCREENING 07/27/2019 07/27/2018, 02/16/2018 PAP SMEAR 02/03/2021 02/03/2018 DTaP,Tdap,and Td Vaccines (2 - 06/22/2028 06/22/2018 Td) HPV VACCINES Completed 03/05/2019, 09/13/2018, 08/09/2018 PNEUMOCOCCAL 0-64 YEARS Aged Out No longe r eligible based COMBINED SERIES on patient's age [facility] documented as of this encounter Results Not on filedocumented in this encounter Visit Diagnoses Diagnosis Encounter for surveillance of other cont raceptive - Primary Presence of intrauterine contraceptive d evice documented in this encounter Insurance Payer Benefit Plan / Subscriber ID Effective Phone Address T ype Group Dates [employer] xxxxxxxxx 2019-[address] [place] [address] [place] [address] (Home) [place] [address] documented as of this encounter Advance Directives Name Relationship Healthcare Agent Relationship Co mmunication Noemi Granado Other Primary healthcare agent
--- OUTSIDE RECORDS SUMMARY | 2020-04-09 18:54 | XMS REPORT | Summary of Care ---
:1995 Author Organization [facility] Address [address] [place] [address] Care Team Providers Name Role Phone Dayana Ni [facility] Insurance [facility] Rei Douglas [facility] Primary [facility] Provider Reason for Visit Reason Comments Follow-up iud check Encounter Details Date Type Department Care Team Description [facility] for surveillance of other contraceptive (Primary Dx); BERNIE MaravillaP Presence of intrauterine contraceptive d evice [address] [facility] [place] [address] [place], [place] [address] [place], [place] [address] Allergies No Known Allergiesdocumented as of this [...] Comments Blood Pressure 126/68 12/25/2019 11:24 AM TEST LEAD APPLICATION TESTING Pulse 72 12/25/2019 11:24 AM TEST LEAD APPLICATION TESTING Temperature 36.5 C (97.7 F) 12/25/2019 11:24 AM TEST LEAD APPLICATION TESTING Respiratory Rate 16 12/25/2019 11:24 AM TEST LEAD APPLICATION TESTING Oxygen Saturation - - Inhaled Oxygen Concentration - - Weight 190.5 kg (420 lb) 12/25/2019 11:24 AM TEST LEAD APPLICATION TESTING Height 167.6 cm (5' 6") 12/25/2019 11:24 AM TEST LEAD APPLICATION TESTING Body Mass Index 67.79 12/25/2019 11:24 AM TEST LEAD APPLICATION TESTING documented in this encounter Progress Notes Oli Dueñas, TALENT SOURCER - 12/25/2019 10:45 AM CST Chief complaint: [...] 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 BEV Brown 12/25/2019 1:02 PM LEAD APPLICATION TESTING documented in this encounter Plan of Treatment Health Maintenance Due Date Last Done Comments CHLAMYDIA SCREENING 07/27/2019 07/27/2018, 02/16/2018 MENINGOCOCCAL B VACCINES (1 12/24/2020 Post poned from 02/14/2006 of 2 - Risk Bexsero 2-dose (Refu sed) series) INFLUENZA VACCINE (#1) 2020 Postponed from 07/22/2019 (Refused) PAP SMEAR 02/03/2021 02/03/2018 DTaP,Tdap,and Td Vaccines (2 06/22/2028 06/22/2018 - Td) HPV VACCINES Completed 03/05/2019, 09/13/2018, 08/09/2018 PNEUMOCOCCAL 0-64 YEARS Aged Out No longe r eligible based COMBINED SERIES on patient's age to complete this to pic documented as of this encounter Results Not on filedocumented in this encounter Visit Diagnoses Diagnosis Encounter for surveillance of other cont raceptive - Primary Presence of intrauterine contraceptive d evice documented in this encounter Insurance Payer Benefit Plan / Subscriber ID Effective Phone Address T ype Group Dates [employer] xxxxxxxxx 2019-Prese [address] [place] [id number] [place] [address] documented as of this encounter Advance Directives Name Relationship Healthcare Agent Relationship Co mmunication Noemi Granado Other Primary healthcare agent
--- OUTSIDE RECORDS SUMMARY | 2020-04-09 18:54 | XMS REPORT | Summary of Care ---
:1995 Author Organization [facility] Address [address] [place] [address] Care Team Providers Name Role Phone Dayana Ni [facility] Insurance [facility] Provider Reason for Visit Reason Comments Follow-up iud check Encounter Details Date Type Department Care Team Description 12/25/[address] [facility] n[facility] for surveillance of other contraceptive (Primary Dx); BERNIE MaravillaP Presence of intrauterine contraceptive d evice [address] [facility] [place] [address] [place], [place] [address] [place], [place] [address] Allergies No Known Allergiesdocumented as of this [...] Comments Blood Pressure 126/68 12/25/2019 11:24 AM COMPUTER HARDWARE ENGINEER Pulse 72 12/25/2019 11:24 AM COMPUTER HARDWARE ENGINEER Temperature 36.5 C (97.7 F) 12/25/2019 11:24 AM COMPUTER HARDWARE ENGINEER Respiratory Rate 16 12/25/2019 11:24 AM COMPUTER HARDWARE ENGINEER Oxygen Saturation - - Inhaled Oxygen Concentration - - Weight 190.5 kg (420 lb) 12/25/2019 11:24 AM COMPUTER HARDWARE ENGINEER Height 167.6 cm (5' 6") 12/25/2019 11:24 AM COMPUTER HARDWARE ENGINEER Body Mass Index 67.79 12/25/2019 11:24 AM COMPUTER HARDWARE ENGINEER documented in this encounter Progress Notes Oli Dueñas, FLOOR SANDER - 12/25/2019 10:45 AM CST Chief complaint: [...] Smiley MD; 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 BEV Brown 12/25/2019 1:02 PM UTER HARDWARE ENGINEER documented in this encounter Plan of Treatment [...] on patient's age to complete [facility] documented as of this encounter Results Not on filedocumented in this encounter Visit Diagnoses Diagnosis Encounter for surveillance of other cont raceptive - Primary Presence of intrauterine contraceptive d evice documented in this encounter Insurance Payer Benefit Plan / Subscriber ID Effective Phone Address T ype Group Dates [employer] xxxxxxxxx 2019-Prese [address] [place] [address] [place] [address] (Home) [place] [address] documented as of this encounter Advance Directives Name Relationship Healthcare Agent Relationship Co mmunication Noemi Granado Other Primary healthcare agent
--- OUTSIDE RECORDS SUMMARY | 2020-04-09 18:55 | XMS REPORT | Summary of Care ---
:1995 Author Organization [facility] Address [address] [place] [address] Care Team Providers Name Role Phone Dayana Ni [facility] Insurance Hmo Rei Douglas [facility] Primary Care Provider Encounter Details Date Type Department Care Team Description 12/25/2019 Orders Only [facility] Doctor Unassigned, No [address] [facility] [place] [address] [address] [place] [address] Allergies No Known Allergiesdocumented as of this [...] of this encounter Last Filed Vital Signs Not on filedocumented in this encounter Plan of Treatment Health [...] on patient's age to complete this to [facility] documented as of this encounter Procedures Procedure Name Priority Date/Time Associated Diagnosis Comme nts [id number] CONSENT Routine 12/25/2019 12:01 AM WALLCOVERING TEXTURER documented in this encounter Results Not on filedocumented in this encounter Insurance Payer Benefit Plan / Subscriber ID Effective Phone Address T ype Group Dates [employer] xxxxxxxxx 2019-Mauro Carrasco [address] [place] [address] [place] [address] documented as of this encounter Advance Directives Name Relationship Healthcare Agent Relationship Co mmunication Noemi Granado Other Primary healthcare agent
--- NOTE | 2020-04-09 20:17 | ER ---
Nurse's Notes [facility] Name: Lyudmila Christian Age: 25 yrs Sex: Female : 1995 Arrival Date: 04/09/2020 Time: 18:56 Bed 14 Private MD: Diagnosis: Migraine without aura, not intractable;Visual disturbances Presentation: 04/09 19:13 Acuity: KIP 3 sg 19:18 Chief complaint: Patient states: getting migraines and has intense pain on right side iw of forehead, feels like a brain freeze, sees lines and flashing speck in left eye, symptoms started last night, took Teagan seltzer pill last night and earlier today had a Tylenol, had some relief but wasn't completely resolved, has had previous migraine. Coronavirus screen: Proceed with normal triage. Patient denies a cough. Patient denies shortness of breath or difficulty breathing. Patient denies measured and/or subjective temperature greater than 100.4F prior to today's visit. Patient denies travel on a cruise ship or to a country the [facility] currently lists as an affected area. Patient denies contact with known and/or suspected case of COVID-19. Ebola Screen: Patient negative for fever greater than or equal to 101.5 degrees Fahrenheit, and additional compatible Ebola Virus Disease symptoms Patient denies exposure to infectious person. Patient denies travel to an Ebola-affected area in the 21 days before illness onset. No symptoms or risks identified at this time. Initial Sepsis Screen: Does the patient meet any 2 criteria? No. Patient's initial sepsis screen is negative. Does the patient have a suspected source of infection? No. Patient's initial sepsis screen is negative. Risk Assessment: Do you want to hurt yourself or someone else? Patient reports no desire to harm self or others. Onset of symptoms was April 08, 2020. 19:18 Method Of Arrival: Ambulatory iw Triage Assessment: 20:15 Pain: Pain currently is 5 out of 10 on a pain scale. mg2 20:33 Pain: Pain began gradually, 1 day ago. mg2 20:34 Headache History: The patient has had previous headaches and this one is similar to mg2 previous episodes. 20:34 Pain: Also complains of no other associated symptoms. mg2 HAND BOOKBINDER: 19:18 LMP N/A - control method iw Historical: - Allergies: 19:13 No Known Allergies; sg - Home Meds: 19:13 Iron CR Oral [Active]; sg - PMHx: 19:13 anemic during ; sg - PSHx: 19:13 ; sg - Immunization history:: Adult Immunizations up to date. - Social history:: Smoking status: Patient denies any tobacco usage or history of. Screenin:15 Tuberculosis screening: No symptoms or risk factors identified. mg2 20:33 Abuse screen: Denies threats or abuse. Denies injuries from another. Nutritional mg2 screening: No deficits noted. 20:34 Fall Risk None identified. mg2 Assessment: 20:15 General: Appears in no apparent distress. comfortable, Behavior is calm, cooperative. mg2 Pain: Complains of pain in forehead. Neuro: Level of Consciousness is awake, alert, obeys commands, Oriented to person, place, time, situation. Neuro: Reports headache. Cardiovascular: Capillary refill < 3 seconds Patient's skin is warm and dry. Respiratory: Airway is patent Respiratory effort is even, unlabored, Respiratory pattern is regular, symmetrical. GI: No signs and/or symptoms were reported involving the gastrointestinal system. : No signs and/or symptoms were reported regarding the genitourinary system. EENT: No signs and/or symptoms were reported regarding the EENT system. Derm: Skin is intact, is healthy with good turgor, Skin is pink, warm \T\ dry. normal. Musculoskeletal: Circulation, motion, and sensation intact. Capillary refill < 3 seconds. Vital Signs: 19:18 BP 143 / 89; Pulse 75; Resp 16; Temp 98.0; Pulse Ox 100% on R/A; Weight 172.37 kg; iw Height 5 ft. 6 in. (167.64 cm); Pain 3/10; 19:18 Body Mass Index 61.33 (172.37 kg, 167.64 cm) iw Asmita Coma Score: 23:42 Eye Response: spontaneous(4). Verbal Response: oriented(5). Motor Response: obeys tw4 commands(6). Total: 15. ED Course: 18:56 Patient arrived in ED. as 19:13 Triage completed. sg 19:18 Arm band placed on. iw 19:47 Tevin Barker MD is Attending Physician. tw4 19:52 Jakob Paniagua, RN is Primary Nurse. mg2 20:15 Dane Emery MD is Referral Physician. tw4 20:34 Patient has correct armband on for positive identification. mg2 20:34 No provider procedures requiring assistance completed. Patient did not have IV access mg2 during this emergency room visit. Administered Medications: No medications were administered Outcome: 20:16 Discharge ordered by . tw4 20:34 Discharged to home ambulatory. mg2 20:34 Condition: stable 20:34 Discharge instructions given to patient, Instructed on discharge instructions, follow up and referral plans. medication usage, Demonstrated understanding of instructions, follow-up care, medications, Prescriptions given X 1. 20:35 Patient left the ED. mg2 Signatures: Nicolas Panda, RN RN Carolina Dow Irene, RN RN iw Tevin Barker MD MD tw4 Jakob Paniagua, RN RN mg2
--- NOTE | 2020-04-09 20:18 | EDPHYS ---
Physician Documentation [facility] Name: Lyudmila Christian Age: 25 yrs Sex: Female : 1995 Arrival Date: 04/09/2020 Time: 18:56 Bed 14 Private MD: ED Physician Tevin Barker HPI: 04/09 20:03 This 25 yrs old Female presents to ER via Ambulatory with complaints of tw4 Headache, Vision Problem. 20:03 The patient complains of pain to the forehead. The patient describes the headache as tw4 aching. Onset: The symptoms/episode began/occurred today. Associated signs and symptoms: The patient has no apparent associated signs or symptoms. The patient has not experienced similar symptoms in the past. 20:03 Headache History: The patient has had previous headaches and this one is similar to tw4 previous episodes. The symptoms are alleviated by nothing. the symptoms are aggravated by nothing. 20:14 Severity of symptoms: At its worst the pain was mild, in the emergency department the tw4 pain has resolved, has improved. pt states she had blurry vision in her left eye after having a "migraine". 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 - Social history:: Smoking status: Patient denies any tobacco usage or history of. ROS: 20:03 Neuro: Positive for headache, visual changes, Negative for altered mental status, tw4 dizziness, gait disturbance, numbness, seizure activity, speech changes, syncope, near syncope, tingling. 20:03 Constitutional: Negative for fever, chills, and weight loss, Eyes: Negative for injury, tw4 pain, redness, and discharge, Cardiovascular: Negative for chest pain, palpitations, and edema, Respiratory: Negative for shortness of breath, cough, wheezing, and pleuritic chest pain, Abdomen/GI: Negative for abdominal pain, nausea, vomiting, diarrhea, and constipation, Back: Negative for injury and pain, Skin: Negative for injury, rash, and discoloration. Exam: 20:03 Constitutional: This is a well developed, well nourished patient who is awake, alert, tw4 and in no acute distress. Head/Face: Normocephalic, atraumatic. Chest/axilla: Normal chest wall appearance and motion. Nontender with no deformity. No lesions are appreciated. Cardiovascular: Regular rate and rhythm with a normal S1 and S2. No gallops, murmurs, or rubs. Normal PMI, no JVD. No pulse deficits. Respiratory: Lungs have equal breath sounds bilaterally, clear to auscultation and percussion. No rales, rhonchi or wheezes noted. No increased work of breathing, no retractions or nasal flaring. Abdomen/GI: Soft, non-tender, with normal bowel sounds. No distension or tympany. No guarding or rebound. No evidence of tenderness throughout. Back: No spinal tenderness. No costovertebral tenderness. Full range of motion. Skin: Warm, dry with normal turgor. Normal color with no rashes, no lesions, and no evidence of cellulitis. MS/ Extremity: Pulses equal, no cyanosis. Neurovascular intact. Full, normal range of motion. Neuro: Awake and alert, GCS 15, oriented to person, place, time, and situation. Cranial nerves II-XII grossly intact. Motor strength 5/5 in all extremities. Sensory grossly intact. Cerebellar exam normal. Normal gait. Vital Signs: 19:18 BP 143 / 89; Pulse 75; Resp 16; Temp 98.0; Pulse Ox 100% on R/A; Weight 172.37 kg; iw Height 5 ft. 6 in. (167.64 cm); Pain 3/10; 19:18 Body Mass Index 61.33 (172.37 kg, 167.64 cm) iw Asmita Coma Score: 23:42 Eye Response: spontaneous(4). Verbal Response: oriented(5). Motor Response: obeys tw4 commands(6). Total: 15. MDM: 19:55 Patient medically screened. tw4 23:42 Data reviewed: vital signs, nurses notes. Test interpretation: by ED physician or tw4 midlevel provider: not applicable. Counseling: I had a detailed discussion with the patient and/or guardian regarding: the historical points, exam findings, and any diagnostic results supporting the discharge/admit diagnosis. Special discussion: I discussed with the patient/guardian in detail that at this point there is no indication for admission to the hospital. It is understood, however, that if the symptoms persist or worsen the patient needs to return immediately for re-evaluation. Administered Medications: No medications were administered Disposition: 04/09/20 20:16 Discharged to Home. Impression: Migraine without aura, not intractable, Visual disturbances. - Condition is Stable. - Discharge Instructions: Migraine Headache. - Prescriptions for Fiorinal 50- 325-40 mg Oral Capsule - take 1 capsule by ORAL route every 4 hours As needed - not to exceed 6 capsules per day; 20 capsule. - Medication Reconciliation Form, Thank You Letter, Antibiotic Education, Prescription Opioid Use form. - Follow up: Private Physician; When: Upon discharge from the Emergency Department; Reason: Recheck today's complaints, Continuance of care, Re-evaluation by your physician. Follow up: Dane Emery MD; When: Upon discharge from the Emergency Department; Reason: Recheck today's complaints, Continuance of care, Re-evaluation by your physician. - Problem is new. - Symptoms have improved. Signatures: Nioclas Panda RN RN sg Tevin Barker MD MD tw4 Jakob Paniagua RN RN mg2 Corrections: (The following items were deleted from the chart) 20:15 20:03 Severity of symptoms: At its worst the pain was moderate, in the emergency tw4 department the pain is unchanged, tw4 20:35 20:16 04/09/2020 20:16 Discharged to Home. Impression: Migraine without aura, not mg2 intractable; Visual disturbances. Condition is Stable. Forms are Medication Reconciliation Form, Thank You Letter, Antibiotic Education, Prescription Opioid Use. Follow up: Private Physician; When: Upon discharge from the Emergency Department; Reason: Recheck today's complaints, Continuance of care, Re-evaluation by your physician. Follow up: Dane Emery; When: Upon discharge from the Emergency Department; Reason: Recheck today's complaints, Continuance of care, Re-evaluation by your physician. Problem is new. Symptoms have improved. tw4
[2020-04-09 20:52] VITALS: BP 143/89; TEMP 98; O2SAT 100
== END 2020-04-09 20:35 | disposition home or self-care (01) ==
LOC: ER 18:50
DX: G43.009 Migraine without aura, not intractable, without status migrainosus (principal); H53.9 Unspecified visual disturbance
CPT/HCPCS: 99282

== ENCOUNTER 2021-05-05 14:44 | Emergency (ER) | payer OTHER ==
--- OUTSIDE RECORDS SUMMARY | 2021-05-05 14:47 | XMS REPORT | Continuity of Care Document ---
:1995 Author Organization Formerly [facility] t Address [address] [place] [address] Care Team Providers Name Role Phone Ultrasound Attending Clinician Unavailable Michael PABLO, N Attending Clinician Lab Attending Clinician Unavailable 3, Mfm Usg Room Attending Clinician Unavailable Wayne PABLO Attending Clinician Beka Kirkland DO Attending Clinician Misael BAILEYP, C Attending Clinician Lab Attending Clinician Unavailable Doctor Unassigned, Name Attending Clinician Unavailable Lab, Fam Pob I Attending Clinician Unavailable Grace DEL CID Attending Clinician Unavailable Problems This patient has no known problems. Allergies, Adverse Reactions, Alerts This patient has no known allergies or adverse reactions. Medications This patient has no known medications. Procedures This patient has no known procedures. 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 [id number] MATERNAL [id number] & CHILD [address] [place] [address] 2021-04-23 2021-04-23 Routine JUSTICE Rodriguez [id number] 15:59:38 16:46:40 Lashonda N [facility] [id number] Visit REGIONAL [id number] MATERNAL [id number] & CHILD [address] [facility] 2021-04-09 2021-04-09 [facility] [id number] 15:46:29 16:26:55 Lashonda N [facility] [id number] Visit REGIONAL [id number] MATERNAL [id number] & CHILD 107 [facility] 2021-03-12 2021-03-12 [facility] [id number] 10:11:29 10:42:40 Lashonda N [facility] [id number] Visit REGIONAL [id number] MATERNAL [id number] & CHILD 107 [facility] 2021-03-05 2021-03-05 Veterinary Surgery Technician Lab, [facility] [id number] 12:28:23 12:53:40 Visit [facility] [id number] CLINICS 4.2.7.2.686 [id number] 2021-03-05 2021-03-05 Veterinary Surgery Technician 3[facility] [id number] 11:48:45 12:25:49 Visit [facility] [id number] CLINICS [id number] [id number] 2021-03-05 2021-03-05 Case Wayne [facility] [id number] 00:00:00 00:00:00 Management [facility] [id number] CLINICS [id number] [id number] 2021-02-10 2021-02-10 Routine Michael [facility] [id number] 12:53:41 13:36:25 Lashonda N [facility] [id number] Visit REGIONAL [id number] MATERNAL [id number] & CHILD [address] [facility] 2021-02-10 2021-02-10 Patient Isael [facility] [id number] 00:00:00 00:00:00 Outreach [facility] [id number] [facility] 4.2.7.2.686 ANITA [id number] 2021-02-02 2021-02-02 Telephone [facility] [id number] 00:00:00 00:00:00 Paz Minaya [facility] [id number] [facility] [id number] MATERNAL [id number] & CHILD [address] [facility] 2021-01-23 2021-01-23 Veterinary Surgery Technician Lab, [facility] [id number] 13:49:20 13:51:10 Visit [facility] [id number] [facility] [id number] MATERNAL [id number] & CHILD [address] [facility] 2021-01-15 2021-01-15 Initial Michael [facility] [id number] 10:02:20 10:56:39 Lashonda N [facility] [id number] [facility] [id number] MATERNAL [id number] & CHILD [address] [facility] 2021-01-15 2021-01-15 Orders Doctor MARLENA [id number] 00:00:00 00:00:00 Only Unassigned, JESSE 350.1.13.10 [place] [facility] 4.2.7.2.686 [id number] 2020-11-24 2020-11-24 Laboratory Lab, [facility] [id number] 09:28:12 09:48:12 Only Fam [facility] [id number] [place] 4.2.7.2.686 Professio [id number] nal [address] 2020-08-17 2020-08-17 Nurse MARLENA Edwards [id number] 00:00:00 00:00:00 Triage Arelizeny MOLINA 350.1.13.10 [facility] 4.2.7.2.686 [id number] 2020-07-23 2020-07-31 Office [facility] [id number] 14:27:57 11:24:32 Visit Paz Minaya [facility] [id number] [facility] [id number] MATERNAL [id number] & CHILD [address] [place] [address] - [place] Results This patient has no known results.
--- NOTE | 2021-05-05 16:05 | ER ---
Nurse's Notes [facility] Name: Lyudmila Christian Age: 26 yrs Sex: Female : 1995 Arrival Date: 05/05/2021 Time: 14:47 Bed 5 Private MD: Diagnosis: Acute pharyngitis Presentation: 05/05 14:59 Chief complaint: Patient states: "I am having some congestion and my work sent me this jd3 direction to see if i have strep throat." 21 weeks . Coronavirus screen: cough unrelated to allergies, sore throat, Client presents with at least one sign or symptom that may indicate coronavirus-19. Standard/surgical mask placed on the client. Provider contacted for isolation considerations. Ebola Screen: Patient negative for fever greater than or equal to 101.5 degrees Fahrenheit, and additional compatible Ebola Virus Disease symptoms. Initial Sepsis Screen: Does the patient meet any 2 criteria? No. Patient's initial sepsis screen is negative. Does the patient have a suspected source of infection? No. Patient's initial sepsis screen is negative. Risk Assessment: Do you want to hurt yourself or someone else? Patient reports no desire to harm self or others. Onset of symptoms was May 03, 2021. 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 21 weeks jd3 Historical: - Allergies: 15:00 No Known Allergies; jd3 - Home Meds: 15:00 None [Active]; jd3 - PMHx: 15:00 anemic during ; jd3 - PSHx: 15:00 ; jd3 - Immunization history:: Adult Immunizations up to date. - Social history:: Smoking status: Patient denies any tobacco usage or history of. Screenin:14 Abuse screen: Denies threats or abuse. Denies injuries from another. Nutritional ld1 screening: No deficits noted. Tuberculosis screening: No symptoms or risk factors identified. Fall Risk None identified. Assessment: 15:14 General: Appears in no apparent distress. comfortable, Behavior is calm, cooperative, ld1 appropriate for age. Pain: Denies pain. Neuro: Level of Consciousness is awake, alert, obeys commands, Oriented to person, place, time, situation, Appropriate for age. Cardiovascular: Capillary refill < 3 seconds Patient's skin is warm and dry. Respiratory: Airway is patent Respiratory effort is even, unlabored, Respiratory pattern is regular, symmetrical, Breath sounds are clear bilaterally. GI: Abdomen is non-distended, obese. : No signs and/or symptoms were reported regarding the genitourinary system. EENT: Throat is pink Reports Throat pain, itchy X 2 days.. Derm: No signs and/or symptoms reported regarding the dermatologic system. Musculoskeletal: No signs and/or symptoms reported regarding the musculoskeletal system. 16:00 Reassessment: Patient appears in no apparent distress at this time. Patient and/or hb family updated on plan of care and expected duration. Pain level reassessed. Patient is alert, oriented x 3, equal unlabored respirations, skin warm/dry/pink. Vital Signs: 15:00 BP 151 / 82; Pulse 107; Resp 17 S; Temp 97.3(TE); Pulse Ox 99% on R/A; Weight 208.65 kg jd3 (R); Height 5 ft. 6 in. (167.64 cm) (R); Pain 4/10; 15:14 BP 141 / 92; Pulse 97; Resp 18; Temp 97.9(O); Pulse Ox 99% on R/A; Weight 208 kg; ld1 Height 5 ft. 7 in. (170.18 cm); Pain 0/10; 15:14 Body Mass Index 71.82 (208.00 kg, 170.18 cm) ld1 ED Course: 14:47 Patient arrived in ED. am2 15:00 Triage completed. jd3 15:02 Arm band placed on. jd3 15:04 Jose Elias Alfaro PA is PHCP. cp 15:04 Jose Elias Vasquez MD is Attending Physician. cp 15:14 Lay Arriaga, NEHEMIAS is Primary Nurse. ld1 15:14 Patient has correct armband on for positive identification. Bed in low position. Call ld1 light in reach. Side rails up X 1. Pulse ox on. NIBP on. 15:14 No provider procedures requiring assistance completed. ld1 16:00 Patient did not have IV access during this emergency room visit. hb Administered Medications: No medications were administered Outcome: 16:00 Discharged to home ambulatory. hb 16:00 Condition: stable 16:00 Discharge instructions given to patient, Instructed on discharge instructions, follow up and referral plans. medication usage, Demonstrated understanding of instructions, follow-up care, medications. 16:04 Discharge ordered by MD. stokes 16:17 Patient left the ED. Signatures: Jose Elias Alfaro PA PA cp Baxter, Heather RN RN Tiny Saravia am2 Leighton Llamas RN RN jd3 Lay Arriaga RN RN ld1 Corrections: (The following items were deleted from the chart) 15:02 14:59 Chief complaint: Patient states: "I am having some congestion and my work sent me jd3 this direction to see if i have strep throat." jd3
--- NOTE | 2021-05-05 16:05 | EDPHYS ---
Physician Documentation [facility] Name: Lyudmila Christian Age: 26 yrs Sex: Female : 1995 Arrival Date: 05/05/2021 Time: 14:47 Bed 5 Private MD: ED Physician Jose Elias Vasquez HPI: 05/05 15:15 This 26 yrs old Female presents to ER via Ambulatory with complaints of Sore cp Throat. 15:15 The patient presents with sore throat. The patient describes throat pain as constant. cp Onset: The symptoms/episode began/occurred yesterday. Associated signs and symptoms: Pertinent positives: nasal congestion, slight cough, Pertinent negatives dysphagia, earache, fever, flu-like symptoms, headache. 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 21 weeks jd3 Historical: - Allergies: 15:00 No Known Allergies; jd3 - Home Meds: 15:00 None [Active]; jd3 - PMHx: 15:00 anemic during ; jd3 - PSHx: 15:00 ; jd3 - Immunization history:: Adult Immunizations up to date. - Social history:: Smoking status: Patient denies any tobacco usage or history of. ROS: 15:20 ENT: Positive for sore throat, Negative for drainage from ear(s), ear pain, difficulty cp swallowing, difficulty handling secretions. 15:20 Eyes: Negative for injury, pain, redness, and discharge. cp 15:20 Constitutional: Negative for body aches, chills, fever, poor PO intake. 15:20 Respiratory: Positive for cough, Negative for shortness of breath, wheezing. 15:20 Abdomen/GI: Negative for abdominal pain, nausea, vomiting, and diarrhea. 15:20 Skin: Negative for rash. 15:20 Neuro: Negative for headache. 15:20 All other systems are negative. Exam: 15:25 Constitutional: The patient appears in no acute distress, alert, awake, non-toxic, well cp developed, well nourished. 15:25 Head/Face: Normocephalic, atraumatic. cp 15:25 Eyes: Periorbital structures: appear normal, Conjunctiva: normal, no exudate, no injection, Sclera: no appreciated abnormality, Lids and lashes: appear normal, bilaterally. 15:25 ENT: External ear(s): are unremarkable, Ear canal(s): are normal, clear, TM's: bulging, is not appreciated, bilaterally, erythema, is not appreciated, bilaterally, Nose: is normal, Mouth: Lips: moist, Oral mucosa: moist, Posterior pharynx: Airway: no evidence of obstruction, patent, Tonsils: no enlargement, no exudate, Uvula: midline, erythema, that is mild. 15:25 Neck: Lymph nodes: no appreciated lymphadenopathy. 15:25 Chest/axilla: Inspection: normal. 15:25 Cardiovascular: Rate: normal. 15:25 Respiratory: the patient does not display signs of respiratory distress, Respirations: normal, no use of accessory muscles, no retractions, labored breathing, is not present. 15:25 Abdomen/GI: Exam negative for discomfort, distension, guarding, Inspection: abdomen cp appears normal. 15:25 Skin: no rash present. cp Vital Signs: 15:00 BP 151 / 82; Pulse 107; Resp 17 S; Temp 97.3(TE); Pulse Ox 99% on R/A; Weight 208.65 kg jd3 (R); Height 5 ft. 6 in. (167.64 cm) (R); Pain 4/10; 15:14 BP 141 / 92; Pulse 97; Resp 18; Temp 97.9(O); Pulse Ox 99% on R/A; Weight 208 kg; ld1 Height 5 ft. 7 in. (170.18 cm); Pain 0/10; 15:14 Body Mass Index 71.82 (208.00 kg, 170.18 cm) ld1 MDM: 15:04 Patient medically screened. [facility] 15:05 Differential diagnosis: apthous stomatitis, group A strep tonsillitis, mononucleosis, cp peritonsillar abscess pharyngitis. 16:03 Data reviewed: vital signs, nurses notes, lab test result(s), and as a result, I will cp discharge patient. 16:03 Counseling: I had a detailed discussion with the patient and/or guardian regarding: the cp historical points, exam findings, and any diagnostic results supporting the discharge/admit diagnosis, to return to the emergency department if symptoms worsen or persist or if there are any questions or concerns that arise at home. 05/05 15:10 Order name: Strep cp 05/05 15:33 Order name: Throat Culture EDMS Administered Medications: No medications were administered Disposition: 05/06 08:02 Co-signature as Attending Physician, Jose Elias Vasquez MD I agree with the assessment and [facility] plan of care. Disposition: 05/05/21 16:04 Discharged to Home. Impression: Acute pharyngitis. - Condition is Stable. - Discharge Instructions: Pharyngitis, Sore Throat, Form - Return To Work. - Work release form, Medication Reconciliation Form, Thank You Letter, Antibiotic Education, Prescription Opioid Use form. - Follow up: Private Physician; When: 2 - 3 days; Reason: Worsening of condition. - Problem is new. - Symptoms are unchanged. 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 Impression: Acute pharyngitis. Condition is hb Stable. Forms are Medication Reconciliation Form, Thank You Letter, Antibiotic Education, Prescription Opioid Use. Follow up: Private Physician; When: 2 - 3 days; Reason: Worsening of condition. Problem is new. Symptoms are unchanged. cp
[2021-05-05 16:22] VITALS: O2SAT 99
[2021-05-05 16:24] VITALS: BP 141/92; TEMP 97.9
== END 2021-05-05 16:17 | disposition home or self-care (01) ==
LOC: ER 14:44
DX: O26.892 Other specified pregnancy related conditions, second trimester (principal); J02.9 Acute pharyngitis, unspecified; Z3A.21 21 weeks gestation of pregnancy
CPT/HCPCS: 87070; 87081; 99283

== ENCOUNTER 2023-04-26 18:21 | Emergency (ER) | payer OTHER ==
--- OUTSIDE RECORDS SUMMARY | 2023-04-26 18:25 | XMS REPORT | Continuity of Care Document ---
:1995 Author Organization [facility] t Address [address] [facility]. [address] [place] [address] Care Team Providers Name Role Phone Radha Vizcarra Primary Care Physician [phone] Doctor Unassigned, [place] Attending Clinician Unavailable Lab, Ang - Db Attending Clinician Unavailable Bony Cronin Attending Clinician BONY MONTELONGO Attending Clinician Unavailable RADHA DOUGLAS Attending Clinician Unavailable Radha Vizcarra Attending Clinician [phone] JULIANNA TREJO Attending Clinician Unavailable Julianna Ni MA Attending Clinician Unavailable aNbil Herring RN Attending Clinician Unavailable OLI SUAREZ Attending Clinician Unavailable NAIMA TYLER Attending Clinician Unavailable Naima Avendano Attending Clinician Pea-Rmchp Nurse Vst, Fp Nrpt Pills Class Attending Clinician Unavailable George CRESPO, Kalee Hanley Attending Clinician KALEE VAZQUEZ Attending Clinician Unavailable Azam Wong MD Attending Clinician [phone] Maria Elena Jenkins MD Attending Clinician MARIA ELENA JENKINS Attending Clinician Unavailable MARIA ELENA JENKINS Attending Clinician Unavailable Shey Riggs RN Attending Clinician Unavailable Suarez DATA PROCESSING CONSULTANT, Roshunda R Attending Clinician Ultrasound, [facility] Attending Clinician Unavailable Miguel VALLES, Pelon Anderson Attending Clinician Lab, [facility] Attending Clinician Unavailable Wayne PABLO, Jaylin Attending Clinician 3, [facility] Usg Room Attending Clinician Unavailable Pk Castañeda MD Attending Clinician Prosper Jenkins DO Attending Clinician Lab, [facility] Attending Clinician Unavailable Lab, Adc Fam Pob I Attending Clinician Unavailable Satish PABLO, Lisa Attending Clinician LISA PORTILLO Attending Clinician Unavailable WILLEM PURCELL Attending Clinician Unavailable Grace DEL CID, Areli Attending Clinician Unavailable Maria Elena Jenkins MD Admitting Clinician MARIA ELENA JENKINS Admitting Clinician Unavailable Payers Payer Name Policy Type Policy Number Effective Date Expiration Date S anna [facility] - [id number] 2021 00:00:00 OUT OF STATE Problems Condition Condition Condition Status Onset Resolution Last Treating Co mments Source Name Details Category Date Date Treatment Clinician Date BMI 70 and BMI 70 and Disease Active U nivers over, over, 5-31 ity of adult adult 00:00: [place] 00 Medical Branch Other Other Disease Active Univers general general 5-27 [place] and advice 00 Me dical for for Branch contracept contracept billy billy management management IUD IUD Disease Active Univers (intrauter (intrauter 4-15 it y of ine ine 00:00: [place] device) in device) in [address] Branch Elevated Elevated Disease Active Unive rs liver liver 3-23 ity of enzymes enzymes 00:00: [place] 00 Medical Branch History of History of Disease Active U nivers 2019 novel 2019 novel 2-25 it y of coronaviru [place]aviru [place] disease 00 Medi emily (COVID-19) (COVID-19) Br anch Cervical Cervical Disease Active 2017-11 Overview: Un gail Papanicola Papanicola 0-31 Formattin ity of ou smear ou smear 00:00: g of this Gianfranco as negative negative 00 note Medica l within within might be Branch last 12 last 12 different months months from the original. 01/2018, see scanned records Morbid Morbid Disease Active 2017- Univers obesity obesity 3-29 ity of 00:00: [address] Allergies, Adverse Reactions, Alerts Allergy Allergy Status Severity Reaction(s) Onset Inactive Treating Comm ents Source Name Type Date Date Clinician NO KNOWN Drug Active Univers ALLERGIE Class ity of S [place] [facility] Social History Social Habit Start Date Stop Date Quantity Comments Source Exposure to 2023-04-10 2023-04-20 Not sure [facility] SARS-CoV-2 00:00:00 08:44:00 [facility] (event) [place] Tobacco use and 2023-04-20 2023-04-20 Smokeless tobacco Un iversity of exposure 00:00:00 00:00:00 non-user [facility] Alcohol intake 2023-04-20 2023-04-20 Current [facility] 00:00:00 00:00:00 non-drinker of [facility] alcohol (finding) [place] Sex Assigned At [birth year] Universit y of 00:00:00 00:00:00 [place] [facility] Smoking Status Start Date Stop Date Source Never smoked tobacco [facility] Medications Ordered Filled Start Stop Current Ordering Indication Dosage Frequency Signature Comments Components Source Medication Medication Date Date Medication? Clinician (SIG) Name Name medroxyPROG 2022-0 Yes [id number] 150mg Univers ESTERone 3-18 ity of (DEPO-PROVE 19:30: [place] RA) 00 Medical injection Branch 150 mg medroxyPROG 2022-0 Yes [id number] 150mg Univers ESTERone 3-18 ity of (DEPO-PROVE 19:30: [place] RA) 00 Medical injection Branch 150 mg medroxyPROG 2022-0 Yes [id number] 150mg Univers ESTERone 3-18 ity of (DEPO-PROVE 19:30: [place] RA) 00 Medical injection Branch 150 mg medroxyPROG 2022-0 Yes [id number] 150mg Univers ESTERone 3-18 ity of (DEPO-PROVE 19:30: [place] RA) 00 Medical injection Branch 150 mg medroxyPROG 2022-0 Yes [id number] 150mg Univers ESTERone 3-18 ity of (DEPO-PROVE 19:30: [place] RA) 00 Medical injection Branch 150 mg medroxyPROG 2022-0 Yes [id number] 150mg Univers ESTERone 3-18 ity of (DEPO-PROVE 19:30: [place] RA) 00 Medical injection Branch 150 mg medroxyPROG 2022-0 Yes [id number] 150mg Univers ESTERone 3-18 ity of (DEPO-PROVE 19:30: [place] RA) 00 Medical injection Branch 150 mg medroxyPROG 2022-0 Yes [id number] 150mg Univers ESTERone 3-18 ity of (DEPO-PROVE 19:30: [place] RA) 00 Medical injection Branch 150 mg medroxyPROG 2022-0 Yes [id number] 150mg Univers ESTERone 3-18 ity of (DEPO-PROVE 19:30: [place] RA) 00 Medical injection Branch 150 mg medroxyPROG 2022-0 Yes [id number] 150mg Univers ESTERone 3-18 ity of (DEPO-PROVE 19:30: [place] RA) 00 Medical injection Branch 150 mg medroxyPROG 2022-0 Yes [id number] 150mg Univers ESTERone 3-18 ity of (DEPO-PROVE 19:30: [place] RA) 00 Medical injection Branch 150 mg Immunizations Ordered Filled Immunization Date Status Comments [facility] Immunization Name Name [facility] 2021-06-22 Completed University of 00:00:00 [facility] TDAP 2021-06-22 Completed University of 00:00:00 [facility] TDAP 2021-06-22 Completed University of 00:00:00 [facility] TDAP 2021-06-22 Completed University of 00:00:00 [facility] TDAP 2021-06-22 Completed University of 00:00:00 [facility] TDAP 2021-06-22 Completed University of 00:00:00 [facility] TDAP 2021-06-22 Completed University of 00:00:00 [facility] TDAP 2021-06-22 Completed University of 00:00:00 [facility] TDAP 2021-06-22 Completed University of 00:00:00 [facility] TDAP 2021-06-22 Completed University of 00:00:00 [facility] TDAP 2021-06-22 Completed University of 00:00:00 [place] [facility] HPV9 2019-03-05 Completed University of 00:00:00 [place] [facility] HPV9 2019-03-05 Completed University of 00:00:00 [place] [facility] HPV9 2019-03-05 Completed University of 00:00:00 [place] [facility] HPV9 2019-03-05 Completed University of 00:00:00 [place] [facility] HPV9 2019-03-05 Completed University of 00:00:00 [place] [facility] HPV9 2019-03-05 Completed University of 00:00:00 [place] [facility] HPV9 2019-03-05 Completed University of 00:00:00 [place] [facility] HPV9 2019-03-05 Completed University of 00:00:00 [place] [facility] HPV9 2019-03-05 Completed University of 00:00:00 [place] [facility] HPV9 2019-03-05 Completed University of 00:00:00 [place] [facility] HPV9 2019-03-05 Completed University of 00:00:00 [place] [facility] HPV9 2018-09-13 Completed University of 00:00:00 [place] [facility] HPV9 2018-09-13 Completed University of 00:00:00 [place] [facility] HPV9 2018-09-13 Completed University of 00:00:00 [place] [facility] HPV9 2018-09-13 Completed University of 00:00:00 [place] [facility] HPV9 2018-09-13 Completed University of 00:00:00 [place] [facility] HPV9 2018-09-13 Completed University of 00:00:00 [place] [facility] HPV9 2018-09-13 Completed University of 00:00:00 [place] [facility] HPV9 2018-09-13 Completed University of 00:00:00 [place] [facility] HPV9 2018-09-13 Completed University of 00:00:00 [place] [facility] HPV9 2018-09-13 Completed University of 00:00:00 [place] [facility] HPV9 2018-09-13 Completed University of 00:00:00 [place] [facility] HPV9 2018-08-09 Completed University of 00:00:00 [place] [facility] HPV9 2018-08-09 Completed University of 00:00:00 [place] [facility] HPV9 2018-08-09 Completed University of 00:00:00 [place] [facility] HPV9 2018-08-09 Completed University of 00:00:00 [place] [facility] HPV9 2018-08-09 Completed University of 00:00:00 [place] [facility] HPV9 2018-08-09 Completed University of 00:00:00 [facility] Branch HPV9 2018-08-09 Completed University of 00:00:00 [place] [facility] HPV9 2018-08-09 Completed University of 00:00:00 [place] [facility] HPV9 2018-08-09 Completed University of 00:00:00 [place] [facility] HPV9 2018-08-09 Completed University of 00:00:00 [facility] Branch HPV9 2018-08-09 Completed University of 00:00:00 [place] [facility] TDAP 2018-06-22 Completed University of 00:00:00 [place] [facility] TDAP 2018-06-22 Completed University of 00:00:00 [place] [facility] TDAP 2018-06-22 Completed University of 00:00:00 [place] [facility] TDAP 2018-06-22 Completed University of 00:00:00 [place] [facility] TDAP 2018-06-22 Completed University of 00:00:00 [place] [facility] TDAP 2018-06-22 Completed University of 00:00:00 [facility] Branch TDAP 2018-06-22 Completed University of 00:00:00 [place] [facility] TDAP 2018-06-22 Completed University of 00:00:00 [facility] Branch TDAP 2018-06-22 Completed University of 00:00:00 [facility] Branch TDAP 2018-06-22 Completed University of 00:00:00 [facility] Branch TDAP 2018-06-22 Completed University of 00:00:00 [facility] Vital Signs Vital Name Observation Time Observation Value Comments Source Systolic blood 2023-04-20 13:59:00 114 mm[Hg] Univer sity of pressure [facility] Diastolic blood 2023-04-20 13:59:00 79 mm[Hg] Unive rsity of pressure [facility] Heart rate 2023-04-20 13:59:00 78 /min [facility] Body temperature 2023-04-20 13:59:00 36.78 Arti Univ ersity of [facility] Body height 2023-04-20 13:59:00 168.9 cm [facility] Body weight 2023-04-20 13:59:00 202.758 kg [facility] BMI 2023-04-20 13:59:00 71.07 kg/m2 [facility] Oxygen saturation in 2023-04-20 13:59:00 97 /min [facility] blood by [facility] Pulse oximetry Branch Systolic blood 2023-03-25 20:13:00 140 mm[Hg] Univer sity of pressure [facility] Diastolic blood 2023-03-25 20:13:00 65 mm[Hg] Unive rsity of pressure [facility] Body weight 2023-03-25 20:13:00 205.661 kg Universi ty of [place] [facility] BMI 2023-03-25 20:13:00 71.01 kg/m2 Universi ty of [place] [facility] Heart rate 2023-03-25 20:00:00 98 /min Universi ty of [place] [facility] Body temperature 2023-03-25 20:00:00 36.22 Arti Univ ersity of [place] [facility] Respiratory rate 2023-03-25 20:00:00 18 /min Univ ersity of [facility] Body height 2023-03-25 20:00:00 170.2 cm Universi ty of [place] [facility] Systolic blood 2022-04-16 18:42:00 128 mm[Hg] Univer sity of [facility] Diastolic blood 2022-04-16 18:42:00 80 mm[Hg] Unive rsity of pressure [facility] Heart rate 2022-04-16 18:42:00 74 /min Universi ty of [place] [facility] Body temperature 2022-04-16 18:42:00 36.61 Arti Univ ersity of [place] [facility] Respiratory rate 2022-04-16 18:42:00 16 /min Univ ersity of [place] [facility] Body height 2022-04-16 18:42:00 168.9 cm Universi ty of [place] [facility] Body weight 2022-04-16 18:42:00 192.325 kg Universi ty of [place] [facility] BMI 2022-04-16 18:42:00 67.41 kg/m2 Universi ty of [place] [facility] Procedures Procedure Date / Time Performed Performing Clinician [facility] e ASSIGNMENT OF BENEFITS 2023-03-25 19:33:29 Doctor Unassigned, No [facility] Branch Encounters Start End Encounter Admission Attending Care Care Encounter Source Date/Time Date/Time Type Type Clinicians Facility Department ID 2023-04-22 2023-04-22 Patient Doctor [facility] [id number] [id number] Univers 00:00:00 00:00:00 Secure Msg Unassigned, HEALTH 350.1.13.10 ity of [place] 4.2.7.2.686 Gianfranco as DAMON?BLEA [id number] [facility] [address] [place] MEDICAL OFFICE [facility] 2023-04-20 2023-04-20 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 [id number] Univers 09:00:00 09:22:08 BONY ity of [facility] 2023-04-20 2023-04-20 Office Jayda [facility] 1.2.840.114 [id number] Univers 09:00:00 09:22:08 Visit Bony [facility] 350.1.13.10 it y of [place] 4.2.7.2.686 Gianfrnaco as DAMON?BLEA [id number] [address] OFFICE [facility] 2023-03-25 2023-03-25 Outpatient R MISAEL [facility] [id number] Univers 14:45:00 16:17:45 RADHA goldberg o f [facility] 2023-03-25 2023-03-25 [facility] [id number] Univers 14:45:00 16:17:45 Visit Radha Minaya WIREWORKER 350.1.13.10 ity of [facility] 4.2.7.2.686 Gianfranco as MATERNAL [phone] Med ical & CHILD 107 [facility] 2023-03-25 2023-03-25 Orders Doctor MENDIOLA [id number] [id number] Univers 00:00:00 00:00:00 Only Unassigned, JESSE 350.1.13.10 ity of [place] [facility] 4.2.7.2.686 Gianfranco as [phone] [address] 2023-02-03 2023-02-03 Outpatient R AKINSIPE, [facility] [id number] Univers 15:00:00 15:00:00 RADHA ity o f [facility] 2023-02-03 2023-02-03 Outpatient R AKINSIPE, [facility] [id number] Univers 15:00:00 15:00:00 RADHA tourey o f [facility] 2023-02-03 2023-02-03 Outpatient R NEIL, [facility] [id number] Univers 13:30:00 13:30:00 JULIANNA ity of [facility] 2022-09-23 2022-09-23 Case JAZMIN Ni 1.2.840.114 [id number] Univers 00:00:00 00:00:00 Management Julianna WILCOX 350.1.13.10 ity [place]2.686 [place] [id number] [facility] [address] [place] 2022-07-20 2022-07-20 Nurse MARLENA Herring 1.2.840.114 [id number] Univers 00:00:00 00:00:00 Triage Chearlenica T JESSE 350.1.13.10 ity of [facility] 4.2.7.2.686 Gianfranco as [phone] [facility] [address] [place] 2022-04-16 2022-04-16 Outpatient R MISAEL, [facility] [id number] Univers 13:15:00 14:12:31 RADHA goldberg o [facility] [place] [facility] 2022-04-16 2022-04-16 Office Misael, [facility] [id number] Univers 13:15:00 14:12:31 Visit Radha Minaya WIREWORKER 350.1.13.10 ity of [facility] 4.2.7.2.686 Gianfranco as MATERNAL [phone] [facility] ical & CHILD [address] [place] [address] 2022-04-05 2022-04-05 Outpatient R DANIELA, [facility] [id number] Univers 09:15:00 09:15:00 OLI tourey o f [facility] 2022-03-05 2022-03-05 Office [facility] [id number] Univers 13:00:00 14:05:31 Visit Radha Minaya WIREWORKER 350.1.13.10 ity of [facility] 4.2.7.2.686 Gianfranco as MATERNAL [phone] [facility] & [address] 2022-03-05 2022-03-05 Outpatient R AKINSIPE, [facility] [id number] Univers 13:00:00 14:05:31 RADHA ity o [facility] 2022-03-05 2022-03-05 Outpatient R AKINSIPE, [facility] [id number] Univers 13:00:00 13:00:00 RADHA tourey o [facility] 2022-03-05 2022-03-05 Outpatient R AKINSIPE, [facility] [id number] Univers 13:00:00 13:00:00 RADHA yusuf o [facility] 2022-03-05 2022-03-05 Orders Doctor MENDIOLA 1.2.840.114 [id number] Univers 00:00:00 00:00:00 Only Unassigned, JESSE 350.1.13.10 ity of [place] [facility] 4.2.7.2.686 Gianfranco as [id number] [address] 2022-02-05 2022-02-05 Outpatient R AKINSIPE, [facility] [id number] Univers 12:45:00 14:18:21 RADHA mesfinchristian o [facility] 2022-02-05 2022-02-05 Office [facility] [id number] Univers 12:45:00 14:18:21 Visit Radha Minaya WIREWORKER 350.1.13.10 ity of [facility] 4.2.7.2.686 Gianfranco as MATERNAL [phone] [facility] CHILD [address] [place] [address] 2022-02-05 2022-02-05 Outpatient R AKINSIPE, [facility] [id number] Univers 12:45:00 12:45:00 RADHAURVASHI goldberg [facility] 2022-02-05 2022-02-05 Orders Doctor MARLENA 1.2.840.114 [id number] Univers 00:00:00 00:00:00 Only Unassigned, JESSE 350.1.13.10 ity of [place] [address]2.686 Gianfranco as [phone] [address] 2022-02-03 2022-02-03 Office [facility] [id number] Univers 14:15:00 15:23:40 Visit Radha Minaya WIREWORKER 350.1.13.[address]686 Gianfranco as MATERNAL [id number] Med ical & CHILD [address] [place] [address] 2022-02-03 2022-02-03 [facility] [id number] Univers 14:15:00 15:23:40 RADHA joseph [facility] 2022-02-03 2022-02-03 Outpatient [facility] [id number] Univers 14:15:00 14:15:00 RADHA joseph [facility] [place] [facility] 2022-01-07 2022-01-07 Telephone [facility] 1.2.840.114 [id number] Univers 00:00:00 00:00:00 Radha Minaya WIREWORKER 350.1.13.10 ity [place] [id number] Gianfranco as MATERNAL [phone] Med ical & CHILD [address] [place] [address] 2021-10-21 2021-10-21 Outpatient Daily [facility] [id number] Univers 13:45:00 13:45:00 NAIMA [facility] 2021-10-21 2021-10-21 Outpatient Daily [facility] [id number] Univers 13:45:00 13:45:00 NAIMA [facility] 2021-10-06 2021-10-06 Telephone [facility] 1.2.840.114 [id number] Univers 00:00:00 00:00:00 Radha C WIREWORKER 350.1.13.10 ity [place] [id number] Gianfranco as MATERNAL [phone] Med ical & CHILD [address] [place] [address] 2021-09-29 2021-09-29 Outpatient [facility] [id number] Univers 12:45:00 13:29:02 NAIMA yusuf of [facility] 2021-09-29 2021-09-29 [facility] [id number] Univers 12:54:10 13:09:10 Naima Monte WIREWORKER 350.1.13.10 i ty of Visit [facility] 4.2.7.2.686 Gianfranco as MATERNAL [phone] [facility] ical & CHILD [address] [place] [address] 2021-09-17 2021-09-17 Nurse Shamar-Rmchp Nurse Vst, Fp Nrpt Pills Class [facility] 1.2.840.114 [id number] Univers 10:32:33 11:00:40 Visit Kalee Vazquez WIREWORKER 350.1.13.10 ity of [facility] 4.2.7.2.686 Gianfranco as MATERNAL [phone] [facility] ical & CHILD [address] [place] [address] 2021-09-17 2021-09-17 Outpatient R GEORGE [facility] [id number] Univers 10:15:00 11:00:40 KALEE anderson [facility] 2021-09-14 2021-09-14 Outpatient [facility] [id number] Univers 10:15:00 10:33:21 KALEE anderson [facility] 2021-09-14 2021-09-14 Nurse Shamar-Rmchp Nurse Vst, Fp Nrpt Pills Class [facility] 1.2.840.114 [id number] Univers 09:58:02 10:33:21 Visit Kalee Vazquez WIREWORKER 350.1.13.10 ity of [facility] 4.2.7.2.686 Gianfranco as MATERNAL [phone] [facility] CH[facility] [address] [place] [address] 2021-09-07 2021-09-08 [facility] Azam Wong 1 .2.840.114 [id number] Univers 05:43:00 16:59:00 Encounter Maria Elena Jenkins 350.1.13.10 ity [facility] 4.2.7.2.686 Gianfranco as [phone] [facility] [address] [place] 2021-09-07 2021-09-08 Inpatient P MARIA ELENA JENKINS [facility] SHONNA [id number] Univers 05:43:00 16:59:00 MARIA ELENA JENKINS itchristian [facility] 2021-09-07 2021-09-07 Surgery IsaelMARLENA 1.2.840.114 [id number] Univers 07:05:00 08:50:00 Maria Elena MOLINA 350.1.13.10 ity [facility] 4.2.7.2.686 Gianfranco as [phone] [facility] [address] [place] 2021-09-01 2021-09-01 Routine [facility] [id number] Univers 15:34:55 15:49:55 Naima Monte WIREWORKER 350.1.13.10 i ty of Visit [facility] 4.2.7.2.686 Gianfranco as MATERNAL [phone] Med ical & CHILD [address] [place] [address] 2021-09-01 2021-09-01 Out[facility] [id number] Univers 15:30:00 15:30:00 NAIMA goldberg [facility] 2021-08-25 2021-08-25 Routine [facility] [id number] Univers 14:52:23 15:34:30 Naima Monte WIREWORKER 350.1.13.10 i ty of Visit REGIONAL 4.2.7.2.686 Gianfranco as MATERNAL [id number] [facility] & CHILD [address] [place] [address] 2021-08-25 2021-08-25 Outpatient [facility] [id number] Univers 14:30:00 14:30:00 NAIMA goldberg [facility] 2021-08-19 2021-08-19 Telephone [facility] 1.2.840.114 [id number] Univers 00:00:00 00:00:00 Naima Monte WIREWORKER 350.1.13.10 it y of REGIONAL 4.2.7.2.686 Gianfranco as MATERNAL [id number] [facility] CH[facility] [address] [place] [address] 2021-08-18 2021-08-18 [facility] [id number] Univers 13:03:46 13:18:46 Naima N WIREWORKER 350.1.13.10 i ty of Visit REGIONAL 4.2.7.2.686 Gianfranco as MATERNAL [phone] [facility] CHILD [address] [place] [address] 2021-08-18 2021-08-18 Outpatient Daily [facility] [id number] Univers 13:00:00 13:00:00 NAIMA goldberg [facility] 2021-08-11 2021-08-11 [facility] [id number] Univers 13:22:26 13:54:37 Naima N WIREWORKER 350.1.13.10 i ty of Visit REGIONAL 4.2.7.2.686 Gianfranco as MATERNAL [phone] [facility] & [address] 2021-08-11 2021-08-11 [facility] [id number] Univers 13:00:00 13:00:00 NAIMA goldberg [facility] 2021-07-28 2021-07-28 [facility] 1.2.035.595 [id number] Univers 11:36:58 11:54:44 Naima N WIREWORKER 350.1.13.10 i ty of Visit REGIONAL 4.2.7.2.686 Gianfranco as MATERNAL [id number] [facility] & CHILD [address] [place] [address] 2021-07-28 2021-07-28 [place] 1.2.463.720 [id number] Univers 11:36:58 11:54:44 Naima N WIREWORKER 350.1.13.10 i ty of Visit REGIONAL 4.2.7.2.686 Gianfranco as MATERNAL [id number] [facility] CHILD [address] [place] [address] 2021-07-28 2021-07-28 Outpatient [facility] [id number] Univers 11:00:00 11:00:00 NAIMA christian [facility] 2021-07-28 2021-07-28 Orders Doctor MENDIOLA 1.2.840.114 [id number] Univers 00:00:00 00:00:00 Only Unassigned, JESSE 350.1.13.10 ity of [place] [facility] 4.2.7.2.686 Gianfranco as [id number] [address] 2021-07-28 2021-07-28 Orders Doctor MARLENA 1.2.840.114 [id number] Univers 00:00:00 00:00:00 Only Unassigned, JESSE 350.1.13.10 ity of [place] [facility] 4.2.7.2.686 Gianfranco as [id number] [address] 2021-07-14 2021-07-14 [facility] 1.2.499.117 [id number] Univers 08:49:30 09:33:07 Naima N WIREWORKER 350.1.13.10 i ty of Visit [facility] 4.2.7.2.686 Gianfranco as MATERNAL [id number] [facility] CHILD [address] [place] [address] 2021-07-14 2021-07-14 [facility] 1.2.227.407 [id number] Univers 08:49:30 09:33:07 Naima N WIREWORKER 350.1.13.10 i ty of Visit [facility] 4.2.7.2.686 Gianfranco as MATERNAL [id number] [address] 2021-07-14 2021-07-14 Out[facility] [id number] Univers 09:00:00 09:00:00 NAIMA goldberg [facility] 2021-07-13 2021-07-13 Outpatient Daily SUAREZ [facility] [id number] Univers 09:30:00 09:30:00 OLI anderson [facility] 2021-07-07 2021-07-07 Outpatient Daily TYLER [facility] [id number] Univers 15:00:00 15:00:00 NAIMA goldberg [facility] 2021-06-23 2021-06-23 Orders Doctor MENDIOLA 1.2.840.114 [id number] Univers 00:00:00 00:00:00 Only Unassigned, JESSE 350.1.13.10 ity of [place] [facility] 4.2.7.2.686 Gianfranco as [phone] [facility] [address] 2021-06-23 2021-06-23 Nurse MARLENA Riggs 1.2.840.114 [id number] Univers 00:00:00 00:00:00 Triage Shey MOLINA 350.1.13.10 ity of HOSPITAL 4.2.7.2.686 Gianfranco as [phone] [facility] [address] 2021-06-22 2021-06-22 Routine [facility] 1.2.840.114 [id number] Univers 15:57:46 17:17:11 Ariela R WIREWORKER 350.1.13.10 ity of Visit [facility] 4.2.7.2.686 Gianfranco as MATERNAL [phone] [facility] CHILD [address] [place] [address] 2021-06-22 2021-06-22 Out[facility] [id number] Univers 16:00:00 16:00:00 OLI goldberg o [facility] 2021-06-16 2021-06-16 Out[facility] [id number] Univers 15:30:00 15:30:00 RADHA tourechristian o [facility] 2021-05-26 2021-05-26 Routine [facility] 1.2.566.672 [id number] Univers 14:17:52 15:22:20 Radha Minaya WIREWORKER 350.1.13.10 ity of Visit [facility] 4.2.7.2.686 Gianfranco as MATERNAL [id number] [facility] & [address] 2021-05-26 2021-05-26 Outpatient [facility] [id number] Univers 14:15:00 14:15:00 RADHA goldberg o f [facility] 2021-05-12 2021-05-12 Routine [facility] 1.2.942.957 [id number] Univers 15:55:18 16:24:44 Naima N WIREWORKER 350.1.13.10 i ty of Visit [facility] 4.2.7.2.686 Gianfranco as MATERNAL [phone] Med ical & CHILD 107 [facility] 2021-05-12 2021-05-12 Outpatient Daily TYLER [facility] [id number] Univers 15:45:00 15:45:00 NAIMA [facility] 2021-05-07 2021-05-07 Outpatient Daily TYLER 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 [id number] Univers 13:00:00 13:00:00 [facility] 2021-04-23 2021-04-23 Routine Jayson [place] 1.2.607.861 [id number] Univers 15:59:38 16:46:40 Naima N WIREWORKER 350.1.13.10 i ty of Visit REGIONAL 4.2.7.2.686 Gianfranco as MATERNAL [id number] [facility] 107 [facility] 2021-04-23 2021-04-23 [place] 1.2.679.457 [id number] 15:59:38 16:46:40 Naima N WIREWORKER 350.1.13.10 Visit REGIONAL 4.2.7.2.686 MATERNAL [id number] & CHILD 107 [facility] 2021-04-23 2021-04-23 Outpatient R JAYSON [facility] [id number] Univers 15:45:00 15:45:00 NAIMA goldberg [facility] 2021-04-23 2021-04-23 Outpatient [facility] [id number] Univers 14:15:00 14:15:00 NAIMA goldberg [facility] 2021-04-09 2021-04-09 Routine Jayson Naima N [facility] 1.2.840. 114 [id number] Univers 15:46:29 16:26:55 Oli Suarez R WIREWORKER 350.1.13.1 0 ity of Visit REGIONAL 4.2.7.2.686 Gianfranco as MATERNAL [phone] [facility] CH[facility] [address] [place] [address] 2021-04-09 2021-04-09 [facility] 1.2.020.423 [id number] 15:46:29 16:26:55 Naima Monte WIREWORKER 350.1.13.10 Visit REGIONAL 4.2.7.2.686 MATERNAL [id number] & CHILD [address] [place] [address] 2021-04-09 2021-04-09 Outpatient Daily TYLER [facility] [id number] Univers 12:45:00 12:45:00 NAIMA goldberg [facility] 2021-03-12 2021-03-12 [facility] 1.2.916.518 [id number] Univers 10:11:29 10:42:40 Naima Monte WIREWORKER 350.1.13.10 i ty of Visit REGIONAL 4.2.7.2.686 Gianfranco as MATERNAL [id number] [facility] CH[facility] [address] [place] [address] 2021-03-12 2021-03-12 [facility]ine [facility] 1.2.599.260 [id number] 10:11:29 10:42:40 Naima N WIREWORKER 350.1.13.10 Visit REGIONAL 4.2.7.2.686 MATERNAL [id number] & CHILD [address] [place] [address] 2021-03-12 2021-03-12 Outpatient Daily [facility] [id number] Univers 10:00:00 10:00:00 NAIMA goldberg [facility] 2021-03-05 2021-03-05 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 Lab, [facility] UNIVERSIT 1.2.84 0.114 [id number] Univers 12:28:23 12:53:40 Visit Jaylin Black HEALTH 350.1.13.10 ity of CLINICS 4.2.7.2.[place] [id number] [facility] [address] 2021-03-05 2021-03-05 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 Lab, [facility] 1.2.840.114 [id number] 12:28:23 12:53:40 Visit [facility] HEALTH 350.1.13.10 CLINICS 4.2.7.2.686 [id number] 113 2021-03-05 2021-03-05 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 3, [facility] Room UNIVERSIT 1 .2.840.114 [id number] Univers 11:48:45 12:25:49 Visit [facility] HEALTH 350.1.13.10 ity of CLINICS 4.2.7.2.[place] [id number] [facility] [address] 2021-03-05 2021-03-05 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 3, [facility] UNIVERSIT 1.2.840.11 [id number] 11:48:45 12:25:49 Visit [facility] HEALTH 350.1.13.10 CLINICS 4.2.7.2.686 [id number] 104 2021-03-05 2021-03-05 Outpatient [address] [facility] [id number] Univers 11:15:00 11:15:00 ity of [facility] 2021-03-05 2021-03-05 Case [place], UNIVERSIT 1.2.089.499 [id number] Univers 00:00:00 00:00:00 Management [facility] HEALTH 350.1.13.10 ity of CLINICS [place]2.[place].2.[place] [id number] [facility] [address] 2021-03-05 2021-03-05 Case [place], UNIVERSIT 1.2.294.283 [id number] 00:00:00 00:00:00 Management [facility] HEALTH 350.1.13.10 CLINICS 4.2.7.2.686 [id number] 113 2021-02-10 2021-02-10 Routine Jayson [place] 1.2.699.157 [id number] Univers 12:53:41 13:36:25 Naima N WIREWORKER 350.1.13.10 i ty of Visit REGIONAL 4.2.7.2.686 Gianfranco as MATERNAL [id number] Med ical & CHILD 107 [facility] 2021-02-10 2021-02-10 Routine Jayson [facility] 1.2.530.554 [id number] 12:53:41 13:36:25 Naima N WIREWORKER 350.1.13.10 Visit REGIONAL 4.2.7.2.686 MATERNAL [id number] & CHILD [address] [place] [address] 2021-02-10 2021-02-10 Outpatient R JAYSON [facility] [id number] Univers 13:00:00 13:00:00 NAIMA goldberg [facility] 2021-02-10 2021-02-10 Patient Isael [facility] 1.2.840.114 [id number] 00:00:00 00:00:00 Outreach [facility] 350.1.13.10 [place] CARE 4.2.7.2.686 PAVILLION [phone] [facility] 2021-02-10 2021-02-10 Patient Isael [place] 1.2.840.114 [id number] Univers 00:00:00 00:00:00 Outreach [facility] PRIMARY 350.1.13.10 i ty of [place]2.[place] [id number] [address] 2021-02-02 2021-02-02 [facility]phone [facility] 1.2.840.114 [id number] 00:00:00 00:00:00 Radha Minaya WIREWORKER 350.1.13.10 REGIONAL 4.2.7.2.686 MATERNAL [id number] & CHILD [address] [place] [address] 2021-02-02 2021-02-02 Telephone Misael [facility] 1.2.840.114 [id number] [facility] 00:00:00 00:00:00 Radha C WIREWORKER 350.1.13.10 ity of REGIONAL 4.2.7.2.686 Gianfranco as MATERNAL [phone] [address] 2021-01-23 2021-01-23 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 Lab, [facility] 1.2.840.114 [id number] 13:49:20 13:51:10 Visit [facility] WIREWORKER 350.1.13.10 REGIONAL 4.2.7.2.686 MATERNAL [id number] & [address] 2021-01-23 2021-01-23 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 Lab, [facility] 1.2.840. 114 [id number] [facility] 13:49:20 13:51:10 Visit Radha Douglas WIREWORKER 350.1.13. 10 ity of REGIONAL 4.2.7.2.686 Gianfranco as MATERNAL [id number] [address] 2021-01-23 2021-01-23 Outpatient R MISAEL [facility] [id number] Univers 13:30:00 13:30:00 RADHA joseph [facility] 2021-01-15 2021-01-15 Ji Tyler [place] 1.2.717.493 [id number] Univers 10:02:20 10:56:39 Naima N WIREWORKER 350.1.13.10 i ty of Visit REGIONAL 4.2.7.2.686 Gianfranco as MATERNAL [id number] [address] 2021-01-15 2021-01-15 Ji Tyler [place] 1.2.785.282 [id number] 10:02:20 10:56:39 Naima N WIREWORKER 350.1.13.10 Visit REGIONAL 4.2.7.2.686 MATERNAL [id number] & [address] 2021-01-15 2021-01-15 [facility] [id number] Univers 10:15:00 10:15:00 NAIMA goldberg [facility] 2021-01-15 2021-01-15 Orders Doctor MARLENA 1.2.840.114 [id number] Univers 00:00:00 00:00:00 Only Unassigned, JESSE 350.1.13.10 ity of [place] [facility] 4.2.7.2.686 Gianfranco as [id number] [facility] [address] 2021-01-15 2021-01-15 Orders Doctor MARLENA 1.2.840.114 [id number] 00:00:00 00:00:00 Only Unassigned, JESSE 350.1.13.10 [place] [facility] 4.2.7.2.686 [id number] 009 2020-11-24 2020-11-24 Laboratory Lab, [facility] Fam Pob I [facility] 1.2. 840.114 [id number] [facility] 09:28:12 09:48:12 Only Satish, [facility] 350.1.13.10 ity of [place] 4.2.7.2.686 Gianfranco as Professio [id number] Ca dical [address] Office Building One 2020-11-24 2020-11-24 Laboratory Lab, [facility] 1.2.840.114 [id number] 09:28:12 09:48:12 Only Fam Pob I Health 350.1.13.10 [place] 4.2.7.2.686 Professio [phone] [place] [address] Office [facility] One 2020-11-24 2020-11-24 Outpatient R SATISH [facility] [id number] Univers 09:20:00 09:20:00 LISA ity [facility] 2020-11-15 2020-11-15 Outpatient R BINH [facility] [id number] Univers 16:20:00 16:20:00 WILLEM ity [facility] 2020-08-17 2020-08-17 MARLENA Couch 1.2.840.114 [id number] Univers 00:00:00 00:00:00 Triage Areli JESSE 350.1.13.10 it y of HOSPITAL 4.2.7.2.686 Gianfranco as [id number] [facility] [address] 2020-08-17 2020-08-17 MARLENA Couch 1.2.840.114 [id number] 00:00:00 00:00:00 Triage Areli JESSE 350.1.13.10 HOSPITAL 4.2.7.2.686 [id number] 2020-07-23 2020-07-31 Office [facility] 1.2.221.847 [id number] Univers 14:27:57 11:24:32 Visit Radha C WIREWORKER 350.1.13.10 ity of [facility] 4.2.7.2.686 Gianfranco as MATERNAL [id number] [facility] ical & CHILD [address] [place] [address] 2020-07-23 2020-07-31 Office [facility] 1.2.794.629 [id number] 14:27:57 11:24:32 Visit Radha C WIREWORKER 350.1.13.10 [facility] 4.2.7.2.686 MATERNAL [id number] & [address] 2020-07-23 2020-07-23 Outpatient R [facility] [id number] Univers 14:30:00 14:30:00 RADHA anderson [facility] 2020-07-23 2020-07-23 Orders Doctor MARLENA 1.2.840.114 [id number] Univers 00:00:00 00:00:00 Only Unassigned, JESSE 350.1.13.10 ity of [place] [facility] 4.2.7.2.686 Gianfranco as [id number] [address] 2020-07-15 2020-07-15 Office [facility] 1.2.797.745 [id number] Univers 14:25:42 15:11:12 Visit Radha C WIREWORKER 350.1.13.10 ity of [facility] 4.2.7.2.686 Gianfranco as MATERNAL [id number] [facility] & CHILD [address] [place] [address] 2020-07-15 2020-07-15 [facility] [id number] Univers 14:15:00 14:15:00 RADHA joseph f [facility] 2020-07-15 2020-07-15 Orders Doctor MARLENA 1.2.840.114 [id number] Univers 00:00:00 00:00:00 Only Unassigned, JESSE 350.1.13.10 ity of [place] [facility] 4.2.7.2.686 Gianfranco as [id number] [address] 2019-12-25 2019-12-25 [facility] 1.2.840.114 [id number] Univers 11:00:49 11:23:02 Visit Oli Ambrosio WIREWORKER 350.1.13.10 ity of REGIONAL 4.2.7.2.686 Gianfranco as MATERNAL [id number] [facility] ical & CHILD [address] [place] [address] 2019-12-25 2019-12-25 Outpatient [facility] [id number] Univers 10:45:00 11:23:02 RGSHAHRIAR goldberg o f [facility] 2019-12-25 2019-12-25 Orders Doctor MENDIOLA 1.2.840.114 [id number] Univers 00:00:00 00:00:00 Only Unassigned, JESSE 350.1.13.10 ity of [place] [facility] 4.2.7.2.686 Gianfranco as [id number] [address] 2019-08-07 2019-08-07 [facility] 1.2.270.838 [id number] Univers 13:20:22 14:18:06 Visit Radha Minaya WIREWORKER 350.1.13.10 ity of REGIONAL 4.2.7.2.686 Gianfranco as MATERNAL [phone] [facility] CHILD [address] [place] [address] Results This patient has no known results.
[2023-04-26 21:35] LABS: Absolute Lymphocytes (CBC) 2.9 K/uL (0.7-4.9); Lymphocytes % 36.8 % (15.3-44.8); MCV 92.4 fL (80-100); MPV 8.7 fL (7.6-11.3); RBC Red Blood Cell Count 4.01 M/uL (3.86-4.86)
[2023-04-26 21:39] LABS: Protime INR 1.09
[2023-04-26 21:58] LABS: Potassium 3.6 mEq/L (3.5-5.1)
[2023-04-26] MEDS ORDERED: DIPHENHYDRAMINE 50 MG/ML VIAL ONE (22:24)
[2023-04-26] MEDS ORDERED: ONDANSETRON 4 MG/2 ML VIAL ONE (22:24)
[2023-04-26] MEDS ORDERED: NA CHLORIDE 0.9% 1,000 ML ONE (22:24)
[2023-04-26] MEDS ORDERED: METOCLOPRAMIDE 10 MG/2mL INJ ONE (22:24)
--- NOTE | 2023-04-26 23:13 | ER ---
Nurse's Notes [facility] Name: Lyudmila Christian Age: 28 yrs Sex: Female : 1995 Arrival Date: 04/26/2023 Time: 18:21 Bed 25 Private MD: Diagnosis: Headache;Elevated blood-pressure reading, without diagnosis of hypertension Presentation: 04/26 18:33 Chief complaint: Patient states: headache since this morning and getting worse. Also aa5 reports nausea, hx of migraines. 18:33 Method Of Arrival: Ambulatory aa5 18:33 Coronavirus screen: headache. Ebola Screen: Patient denies travel to an Ebola-affected [facility] area in the 21 days before illness onset. Initial Sepsis Screen: Does the patient meet any 2 criteria? No. Patient's initial sepsis screen is negative. Does the patient have a suspected source of infection? No. Patient's initial sepsis screen is negative. Risk Assessment: Do you want to hurt yourself or someone else? Patient reports no desire to harm self or others. Onset of symptoms was April 2023. 18:33 Acuity: KIP 3 aa5 Historical: - Allergies: 18:33 No Known Allergies; aa5 - PMHx: 18:33 anemic during ; aa5 18:34 Migraine; aa5 - Immunization history:: Adult Immunizations unknown. - Social history:: Smoking status: Patient denies any tobacco usage or history of. Screenin:33 [facility] ED Fall Risk Assessment (Adult) History of falling in the last 3 months, jb4 including since admission No falls in past 3 months (0 pts) Confusion or Disorientation Yes (5 pts) Score/Fall Risk Level 0 - 2 = Low Risk Oriented to surroundings, Maintained a safe environment. Abuse screen: Denies threats or abuse. Nutritional screening: No deficits noted. Tuberculosis screening: No symptoms or risk factors identified. Assessment: 21:30 General: Appears in no apparent distress. uncomfortable, Behavior is calm, cooperative, jb4 appropriate for age. Pain: Complains of pain in headache Pain does not radiate. Pain currently is 5 out of 10 on a pain scale. Neuro: Level of Consciousness is awake, alert, obeys commands, Oriented to person, place, time, situation. Cardiovascular: Patient's skin is warm and dry. Respiratory: Airway is patent Respiratory effort is even, unlabored, Respiratory pattern is regular, symmetrical. GI: Reports nausea. : No signs and/or symptoms were reported regarding the genitourinary system. EENT: No signs and/or symptoms were reported regarding the EENT system. Derm: Skin is intact, Skin is pink, warm \T\ dry. Musculoskeletal: Circulation, motion, and sensation intact. Range of motion: intact in all extremities. 22:41 Reassessment: Patient appears in no apparent distress at this time. Patient and/or jb4 family updated on plan of care and expected duration. Pain level reassessed. Patient is alert, oriented x 3, equal unlabored respirations, skin warm/dry/pink. 23:33 Reassessment: Patient appears in no apparent distress at this time. Patient and/or jb4 family updated on plan of care and expected duration. Pain level reassessed. Patient is alert, oriented x 3, equal unlabored respirations, skin warm/dry/pink. Patient states feeling better. Vital Signs: 18:33 BP 176 / 101; Pulse 79; Resp 16 S; Temp 97.1(TE); Pulse Ox 100% on R/A; aa5 22:30 BP 152 / 90; Pulse 64; Resp 16; Pulse Ox 100% on R/A; jb4 22:36 Weight 202.76 kg (M); jb4 23:38 BP 164 / 92; Pulse 90; Resp 16; Pulse Ox 99% on R/A; jb4 ED Course: 18:23 Patient arrived in ED. mr 18:32 Arm band placed on. aa5 18:35 Triage completed. aa5 19:05 Jose Elias Alfaro PA is PHCP. cp 19:05 Jose Elias Vasquez MD is Attending Physician. cp 21:30 Patient has correct armband on for positive identification. Bed in low position. Call 4 light in reach. Side rails up X 1. Client placed on continuous cardiac and pulse oximetry monitoring. NIBP monitoring applied. 21:30 Initial lab(s) drawn, by me, sent to lab. Inserted saline lock: 20 gauge in left jb4 antecubital area, using aseptic technique. Blood collected. 22:06 Cruz Obrien, RN is Primary Nurse. jb4 23:34 No provider procedures requiring assistance completed. IV discontinued, intact, jb4 bleeding controlled, No redness/swelling at site. Pressure dressing applied. Administered Medications: 22: Drug: NS 0.9% IV 1000 ml Route: IV; Rate: 1 bolus; Site: left forearm; jb4 22:29 Drug: metoCLOPramide IVP 10 mg Route: IVP; Site: left forearm; jb4 22:29 Drug: diphenhydrAMINE IVP 25 mg Route: IVP; Site: left forearm; jb4 22:29 Drug: Ondansetron IVP 4 mg Route: IVP; Site: left forearm; jb4 Outcome: 23:12 Discharge ordered by MD. cp 23:34 Discharged to home ambulatory. jb4 23:34 Condition: stable 23:34 Discharge instructions given to patient, Instructed on discharge instructions, follow up and referral plans. medication usage, Demonstrated understanding of instructions, follow-up care, medications, Prescriptions given X 2. 23:38 Patient left the ED. jb4 Signatures: Rashida George mr MariscalEsther, RN RN aa5 Jose Elias Alfaro PA PA cp Bryson, James, RN RN jb4 Corrections: (The following items were deleted from the chart) 23:34 23:33 Patient has correct armband on for positive identification. Bed in low position. jb4 Call light in reach. Side rails up X 1. jb4 23:34 23:33 Client placed on continuous cardiac and pulse oximetry monitoring. NIBP jb4 monitoring applied. jb4
--- NOTE | 2023-04-26 23:13 | EDPHYS ---
Physician Documentation [facility] Name: Lyudmila Christian Age: 28 yrs Sex: Female : 1995 Arrival Date: 04/26/2023 Time: 18:21 Bed 25 Private MD: ED Physician Jose Elias Vasquez HPI: 04/26 21:00 This 28 yrs old Female presents to ER via Ambulatory with complaints of cp Headache, Nausea. 21:00 The patient complains of pain to the top of head and forehead. The patient describes cp the headache as aching. Onset: The symptoms/episode began/occurred this morning, and became worse today. Associated signs and symptoms: Pertinent positives: nausea, Pertinent negatives: altered mental status, fever, neck stiffness, sinus congestion, sinus tenderness, vision changes, vomiting, weakness. Severity of symptoms: in the emergency department the pain is unchanged, despite home interventions. Headache History: The patient has had previous headaches and this one is more severe than previous episodes. Historical: - Allergies: 18:33 No Known Allergies; aa5 - PMHx: 18:33 anemic during ; aa5 18:34 Migraine; aa5 - Immunization history:: Adult Immunizations unknown. - Social history:: Smoking status: Patient denies any tobacco usage or history of. ROS: 21:05 Constitutional: Negative for body aches, chills, fever, poor PO intake. cp 21:05 Eyes: Negative for injury, pain, redness, and discharge. cp 21:05 ENT: Negative for drainage from ear(s), ear pain, sore throat, difficulty swallowing, difficulty handling secretions. 21:05 Neck: Negative for pain with movement, pain at rest, stiffness. 21:05 Cardiovascular: Negative for chest pain, edema, palpitations. 21:05 Respiratory: Negative for cough, shortness of breath, wheezing. 21:05 Abdomen/GI: Positive for nausea, Negative for abdominal pain, vomiting, diarrhea, constipation. 21:05 Back: Negative for pain at rest, pain with movement. 21:05 Neuro: Positive for headache, Negative for altered mental status, dizziness, numbness, syncope, weakness. 21:05 All other systems are negative. Exam: 21:10 Constitutional: The patient appears in no acute distress, alert, awake, cp non-diaphoretic, non-toxic, well developed, well nourished, obese, uncomfortable. 21:10 Head/Face: Normocephalic, atraumatic. cp 21:10 Eyes: Periorbital structures: appear normal, Pupils: equal, round, and reactive to light and accomodation, Extraocular movements: intact throughout, Conjunctiva: normal, no exudate, no injection, Sclera: no appreciated abnormality, Lids and lashes: appear normal, bilaterally. 21:10 ENT: External ear(s): are unremarkable, Ear canal(s): are normal, clear, TM's: dullness, bilaterally, Nose: is normal, Mouth: Lips: moist, Oral mucosa: pink and intact, moist, Posterior pharynx: is normal, airway is patent, no erythema, no exudate. 21:10 Neck: ROM/movement: is normal, is supple, without pain, no range of motions limitations, no nuchal rigidity. 21:10 Chest/axilla: Inspection: normal. 21:10 Cardiovascular: Rate: normal, Rhythm: regular, Edema: is not appreciated, JVD: is not appreciated. 21:10 Respiratory: the patient does not display signs of respiratory distress, Respirations: normal, no use of accessory muscles, no retractions, labored breathing, is not present, Breath sounds: are clear throughout, no decreased breath sounds, no stridor, no wheezing. 21:10 Abdomen/GI: Inspection: obese Palpation: abdomen is soft and non-tender, in all quadrants. 21:10 Back: pain, is absent, ROM is normal. 21:10 Neuro: Orientation: to person, place \T\ time. Mentation: is normal, Cerebellar function: is grossly normal, Motor: moves all fours, strength is normal, Sensation: is normal. Vital Signs: 18:33 BP 176 / 101; Pulse 79; Resp 16 S; Temp 97.1(TE); Pulse Ox 100% on R/A; aa5 22:30 BP 152 / 90; Pulse 64; Resp 16; Pulse Ox 100% on R/A; jb4 22:36 Weight 202.76 kg (M); jb4 23:38 BP 164 / 92; Pulse 90; Resp 16; Pulse Ox 99% on R/A; jb4 MDM: 19:07 Patient medically screened. cp 21:00 Differential diagnosis: hypertensive headache, migraine, sinusitis, subarachnoid bleed, cp subdural hematoma, tension headache. 23:10 Data reviewed: vital signs, nurses notes, lab test result(s). cp 23:10 Consideration of Admission/Observation Escalation of care including cp admission/observation considered. I considered the following discharge prescriptions or medication management in the emergency department Medications were administered in the Emergency Department. See MAR. Test considered but Not performed: CT: head. ED course: VS noted with elevated blood pressure. Patient denies HX HTN. Headache improved with meds. Unable to perform CT head due to patient's weight. Low suspicion for intracranial bleed at this time. Will discharge to home for continued monitoring. 04/26 20:52 Order name: CBC with Diff; Complete Time: 22:08 cp 04/26 20:52 Order name: BMP; Complete Time: 22:08 cp 04/26 20:52 Order name: PT-INR; Complete Time: 22:08 cp 04/26 20:52 Order name: IV; Complete Time: 21:31 cp 04/26 22:09 Order name: Vital Signs: please update; Complete Time: 22:29 cp Administered Medications: 22:29 Drug: NS 0.9% IV 1000 ml Route: IV; Rate: 1 bolus; Site: left forearm; jb4 22:29 Drug: metoCLOPramide IVP 10 mg Route: IVP; Site: left forearm; jb4 22:29 Drug: diphenhydrAMINE IVP 25 mg Route: IVP; Site: left forearm; jb4 22:29 Drug: Ondansetron IVP 4 mg Route: IVP; Site: left forearm; jb4 Disposition Summary: 04/26/23 23:12 Discharge Ordered Location: Home cp Problem: new cp Symptoms: have improved cp Condition: Stable cp Diagnosis - Headache cp - Elevated blood-pressure reading, without diagnosis of hypertension cp Followup: cp - With: Private Physician - When: 2 - 3 days - Reason: Recheck today's complaints Discharge Instructions: - Discharge Summary Sheet cp - Migraine Headache cp - How to Take Your Blood Pressure, [id number] cp - Form - Blood Pressure Record Sheet cp Forms: - Medication Reconciliation Form cp - Thank You Letter cp - Antibiotic Education cp - Prescription Opioid Use cp - Work release form jb4 Prescriptions: - Fioricet 50-300-40 mg Oral capsule - take 1 capsule by ORAL route 4 times per day as needed for pain; 20 capsule; cp Refills: 0, Product Selection Permitted - Zofran 4 mg Oral Tablet - take 1 tablet by ORAL route every 12 hours As needed; 20 tablet; Refills: 0, cp Product Selection Permitted Signatures: Dispatcher [employer] Esther Kamara, RN RN aa5 Jose Elias Alfaro PA PA cp Bryson, James RN RN jb4 Corrections: (The following items were deleted from the chart) 22:51 22:11 Head Brain Wo [id number].BRZ ordered. EDMS EDMS
[2023-04-27 01:27] VITALS: TEMP 97.1
[2023-04-27 01:29] VITALS: BP 164/92; O2SAT 99
== END 2023-04-26 23:38 | disposition home or self-care (01) ==
LOC: ER 18:21
DX: R03.0 Elevated blood-pressure reading, without diagnosis of hypertension (principal)
CPT/HCPCS: 85025; 80048; 36415; 85610; 96375; 96374; 99284; J2765; J1200; J2405; J7030